=== PATIENT | male | born 1940 | race Caucasian/White ===

== ENCOUNTER 2016-08-16 04:01 | Emergency (ER) | payer MEDICARE ==
--- NOTE | 2016-08-16 04:35 | EDM.PDOC ---
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 As the patient arrived here in the ed, his symptoms subsided. Nio N/V/D no palpitations, no pain. Pt stated he has unequal pupils from a prev eye surgery. Pt stated he feels in is usual state of health. Symptom Onset Date: 08/16/16 Symptom Onset Time: 03:20 Timing/Duration: Reports: Hour(s): Location (Neuro Complaint): Reports: generalized (resolved) Quality (Neuro Complaint): Reports: altered gait (resolved) Severity: moderate (resolved) Improves with: Reports: None Worsens with: Reports: None Associated symptoms: Reports: denies other symptoms - Related Data Allergies/ADRs: Allergies Allergy/AdvReac Type Severity Reaction Status Date / Time No Known Allergies Allergy Verified 09/26/15 18:34 Home Meds: Home Meds Albuterol Sulfate [Proair Hfa] 2 puff IH ASDIRECTED PRN 05/12/13 [History] Lisinopril [Prinivil] 10 mg PO DAILY 05/12/13 [History] Omeprazole [Prilosec] 20 mg PO DAILY 05/12/13 [History] Verapamil HCl [Verapamil ER] 120 mg PO DAILY 05/12/13 [History] Clopidogrel Bisulfate [Clopidogrel] 75 mg PO DAILY 01/14/14 [History] Acetaminophen/HYDROcodone [[place] 162.5-5 MG] 1 tab PO QID PRN 11/01/14 [History] Fluticasone Propionate [Fluticasone Propionate [place]] 1 spray NASBOTH BID PRN [History] Acetaminophen/oxyCODONE [Percocet 325-5 MG] 1 each PO Q4HR #20 tab 09/26/15 [Rx] Past Medical History Cardiovascular History: Reports: Hypertension Other Cardiovascular History: IRREGULAR HEART BEAT Social & Family History - Tobacco Use Smoking Status *Q: Former Smoker Years of Tobacco use: 35 Packs/Tins Daily: 1 Used Tobacco, but Quit: Yes Month Tobacco Last Used: 1984 Second Hand Smoke Exposure: No - Alcohol Use Days Per Week of Alcohol Use: 0 - Recreational Drug Use Recreational Drug Use: No Drug Use in Last 12 Months: No - Living Situation & Occupation Living situation: Reports: Occupation: retired ED ROS GENERAL - Review of Systems Review Of Systems: See Below Constitutional: Reports: no symptoms HEENT: Reports: No symptoms Respiratory: Reports: No Symptoms Cardiovascular: Reports: No symptoms Endocrine: Reports: no symptoms GI/Abdominal: Reports: No symptoms : Reports: no symptoms Musculoskeletal: Reports: no symptoms Skin: Reports: no symptoms Neurological: Reports: No Symptoms Psychiatric: Reports: No symptoms Hematologic/Lymphatic: Reports: no symptoms Immunologic: Reports: no symptoms ED EXAM, NEURO - Physical Exam Exam: See Below Exam Limited By: No limitations General Appearance: alert, WD/WN, no apparent distress, thin Eye Exam: bilateral eye: normal inspection (Left pupil 3 mm r pupil 1 mm. Nl for patient) Ears: normal external exam Nose: normal inspection, normal mucosa, no blood Throat/Mouth: Normal inspection, Other (poor dentition) Head Exam: atraumatic, normocephalic Neck: normal inspection, supple, non-tender, full range of motion Respiratory/Chest: no respiratory distress, lungs clear, normal breath sounds Cardiovascular: normal peripheral pulses, regular rate, rhythm, no edema, no gallop GI/Abdominal: normal bowel sounds, soft, non tender, no organomegaly (Male) Exam: Deferred Rectal (Males) Exam: Deferred Neurological: alert, normal mood/affect, normal dorsiflexion, CN II-XII intact, normal plantar flexion, normal gait, normal reflexes, oriented x 3 Back Exam: normal inspection, full range of motion Extremities: normal inspection, normal range of motion, non-tender, no pedal edema Psychiatric: normal affect, normal mood Skin Exam: Warm, Dry, Intact, Normal color, No rash Course - Vital Signs Text/Narrative:: 76 years old w m with a h/o CVA 3 years ago, HTN 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 As the patient arrived here in the ed, his symptoms subsided. Nio N/V/D no palpitations, no pain. Pt stated he has unequal pupils from a prev eye surgery. Pt stated he feels in is usual state of health. PE: pt is in his usual state of health Labs: Pending imaging: CT head: NAD Impression: TIA Reexam: Pt decided to leave AMA, he "feels fine" and walkd out of the ed after signing the [place] form, pending lab results. Pt refused EKG. - Orders/Labs/Meds Orders: Active Orders 24 hr Category Date Time Status Accu Check [Blood Glucose Check, Bedside] [RC] ONETIME Care 08/16/16 04:15 Active EKG Documentation Completion [RC] ASDIRECTED Care 08/16/16 04:13 Ordered Head wo Cont [CT] Stat Exams 08/16/16 04:18 Ordered BASIC METABOLIC PANEL,BMP [CHEM] Stat Lab 08/16/16 04:12 Ordered CREATINE KINASE,CK [CHEM] Stat Lab 08/16/16 04:20 Ordered INR,PT,PROTHROMBIN TIME [COAG] Stat Lab 08/16/16 04:12 Ordered TROPONIN I [CHEM] Stat Lab 08/16/16 04:20 Ordered UA W/MICROSCOPIC [URIN] Stat Lab 08/16/16 04:12 Uncollected EKG 12 Lead [EK] Routine Ther 08/16/16 04:12 Ordered Labs: Laboratory Tests 08/16/16 08/16/16 Range/Units 04:19 04:25 WBC 7.0 (4.5-12.0) X10-3/uL RBC 4.74 (4.30-5.75) x10(6)uL Hgb 14.5 (11.5-15.5) g/dL Hct 43.3 (30.0-51.3) % MCV 91.5 (80-96) fL MCH 30.5 (27.7-33.6) pg MCHC 33.4 (32.2-35.4) g/dL RDW 13.7 (11.5-15.5) % Plt Count 187 (125-369) X10(3)uL MPV 8.0 (7.4-10.4) fL Neut % (Auto) 65.6 (46-82) % Lymph % (Auto) 22.1 (13-37) % [place] % (Auto) 8.7 (4-12) % Eos % (Auto) 3 (1.0-5.0) % Baso % (Auto) 1 (0-2) % Neut # (Auto) 4.6 (1.6-8.3) # Lymph # (Auto) 1.5 (0.6-5.0) # [place] # (Auto) 0.6 (0.0-1.3) # Eos # (Auto) 0.2 (0.0-0.8) # Baso # (Auto) 0.1 (0.0-0.2) # POC Glucose 100 (80-116) mg/dL Departure - Departure Time of Disposition: 04:42 Disposition: Against Medical Advice 07 Condition: good Clinical Impression: TIA (transient ischemic attack) Qualifiers: Transient cerebral ischemia type: unspecified Qualified Code(s): G45.9 - Transient cerebral ischemic attack, unspecified - My Orders Last 24 Hours: My Active Orders 08/16/16 04:12 BASIC METABOLIC PANEL,BMP [CHEM] Stat INR,PT,PROTHROMBIN TIME [COAG] Stat UA W/MICROSCOPIC [URIN] Stat EKG 12 Lead [EK] Routine 08/16/16 04:13 EKG Documentation Completion [RC] ASDIRECTED 08/16/16 04:15 Accu Check [Blood Glucose Check, Bedside] [RC] ONETIME 08/16/16 04:18 Head wo Cont [CT] Stat 08/16/16 04:20 CREATINE KINASE,CK [CHEM] Stat TROPONIN I [CHEM] Stat - Assessment/Plan Last 24 Hours: My Active Orders 08/16/16 04:12 BASIC METABOLIC PANEL,BMP [CHEM] Stat INR,PT,PROTHROMBIN TIME [COAG] Stat UA W/MICROSCOPIC [URIN] Stat EKG 12 Lead [EK] Routine 08/16/16 04:13 EKG Documentation Completion [RC] ASDIRECTED 08/16/16 04:15 Accu Check [Blood Glucose Check, Bedside] [RC] ONETIME 08/16/16 04:18 Head wo Cont [CT] Stat 08/16/16 04:20 CREATINE KINASE,CK [CHEM] Stat TROPONIN I [CHEM] Stat
== END 2016-08-16 04:35 | disposition left against medical advice (07) ==
LOC: FB.ED 04:01
DX: G45.9 Transient cerebral ischemic attack, unspecified (principal); I10 Essential (primary) hypertension; Z79.899 Other long term (current) drug therapy; Z87.891 Personal history of nicotine dependence
CPT/HCPCS: 36415; 70450; 80048; 81001; 82550; 82962; 84484; 85025; 85610; 99284

== ENCOUNTER 2017-05-09 15:20 | Emergency (ER) | payer MEDICARE ==
[2017-05-09 17:14] VITALS: BP 147/80
--- NOTE | 2017-05-10 10:46 | ER ---
DATE SEEN: 05/09/2017 TIME SEEN: The patient was seen at 1525 hours. CHIEF COMPLAINT: Chest pain, shortness of breath, and dizziness. HISTORY OF PRESENT ILLNESS: This 77-year-old man with chronic obstructive lung disease, who has a who is 400 pounds, who has chronic lung disease, diabetes, atrial fibrillation, and is followed by Home Health Care on a daily basis, comes in because he had the above symptoms. He was sitting and watching a news program, when he had the onset of these symptoms. He has shortness of breath because of his chronic obstructive lung disease/asthma. No previous history of heart attack or stroke. He used Mucinex recently. He has had a previous TIA with left facial droop. He notes the chest pain was 8/10 in intensity, lasting one half hour, felt slightly lightheaded, has gone away with associated mild shortness of breath. No pedal edema. No arrhythmia. No rhythm disturbance. ALLERGIES: None. MEDICATIONS: 1. Omeprazole, gas and GERD. 2. Lisinopril, hypertension, 10 mg daily. 3. Fluticasone nasal spray for allergic rhinitis. 4. Clopidogrel 75 mg daily for his TIA. 5. Albuterol sulfate, asthma. 6. [place] p.r.n. pain, back pain. 7. Verapamil for blood pressure control and heart rate, 120 mg daily. REVIEW OF SYSTEMS: Negative, except for noted above. PHYSICAL EXAMINATION: GENERAL: The patient is slightly somnolent. He has not fallen. Denies headache, neck stiffness, or shortness of breath. There is no change (chronic level of shortness of breath). No productive cough. He has dyspnea on exertion which is baseline for him. No rate irregularity of rhythm. No syncope or presyncope. ABDOMEN: No GI symptoms, constipation, or blood in the stool or black tarry stools. He had previous mid epigastric surgery, incision from the umbilicus to the xiphoid, healed without abnormality. The etiology for this surgery is possibly gallbladder and/or gastric surgery. It is indeterminate. GENITALIA: Not examined. LOWER EXTREMITIES: Without edema. NEUROLOGIC: Deep tendon reflexes, upper and lower extremities symmetrical, 1+, normoactive. Cranial nerves 2 through 12 intact. He has a slight nasolabial fold loss on the left side. Smile is appropriate. He is edentulous. Hearing is decreased. I had to talk loudly to him, uses a hearing aid. LABORATORY FINDINGS: Troponin is negative. D-dimer is negative. Complete metabolic panel is normal, and CBC is normal. See chart. Hemoglobin is 14, white count 6,300, and potassium is normal at 3.6, as well as the other studies in the complete metabolic panel. Urinalysis: Few bacteria, occasional squamous epithelial; normal urinalysis with 1.015 specific gravity. EKG: Sinus rhythm, increased NM interval, first-degree AV block, otherwise normal. ASSESSMENT: 1. No evidence for myocardial infarction, stable angina. 2. Chronic obstructive lung disease. 3. Status post previous transient ischemic attack with clopidogrel use. 4. Hypertension. 5. Gastroesophageal reflux disease. 6. Edentulous. PLAN: Imdur 30 mg given in the emergency room. The patient to take 30 mg daily. Return to the ER if he has persistent recurrent intermittent chest pain. Otherwise, follow up with doctor in a week. /[id number] JODIE/CHANEL
--- NOTE | 2017-05-10 11:32 | CR ---
INDICATION: Chest pain. CHEST: PA and lateral views of the chest 05/09/2017, compared with 09/26/2015 and 10/08/2014, again revealed the heart to be slightly enlarged. The aorta is calcified minimally in the arch area. Overlying EKG leads are noted. Heavy markings are noted in the upper middle through lower lung muller, including the bases, as previously, compatible with pulmonary fibrosis. No definite consolidating pneumonia, or effusion was identified. Slightly flattened diaphragm leaves and hyperaeration with slightly prominent AP diameter suggests COPD - correlate clinically. Flowing hyperostotic changes raise question of mild DISH. Bony structures appear to be somewhat demineralized, raising question of osteomalacia or osteoporosis - correlate clinically. IMPRESSION: Fairly stable appearance of the chest. No definite acute process with multiple findings as noted above. MTDD
== END 2017-05-09 17:10 | disposition home or self-care (01) ==
LOC: FB.ED 15:20
DX: I20.9 Angina pectoris, unspecified (principal); J44.9 Chronic obstructive pulmonary disease, unspecified; I10 Essential (primary) hypertension; K21.9 Gastro-esophageal reflux disease without esophagitis; K06.9 Disorder of gingiva and edentulous alveolar ridge, unspecified; Z79.899 Other long term (current) drug therapy
CPT/HCPCS: 36415; 71046; 80053; 81001; 84484; 85025; 85379; 93005; 99284; 99285

== ENCOUNTER 2017-12-03 13:20 | Emergency (ER) | payer MEDICARE ==
--- NOTE | 2017-12-03 13:43 | EDM.PDOC ---
ED HPI GENERAL MEDICAL PROBLEM - General Stated Complaint: BLOOD IN URINE Time Seen by Provider: 12/03/17 13:20 Source of Information: Reports: Patient History Limitations: Reports: No Limitations - History of Present Illness INITIAL COMMENTS - FREE TEXT/NARRATIVE: 77 y.o.w.m with h/o HTN came to the ed because of blood in his urine this morning one time. Pt was seen in this ed on e week ago for same when he was dx' d with an UTI and was put on Abx and aske to F/U with urology. Pt missed the appointment. Pt stated he has a good urinary stream, no N/V/d. He was c/o roght flank pain as well. Last week, a CT abd with IV and PO contrast were done and found to be neg. Pt took his BP meds [employer]ING [employer]. BP 163/75 pulse 78 RR 17 pulse ox 96% on RA temp 36.9 Onset Date: 12/03/17 Onset Time: 06:00 Duration: Hour(s):, Resolved Prior to Arrival Location: Reports: Pelvis Quality: Reports: Other (bloody urine this am, one occasion) Improves with: Reports: None Worsens with: Reports: None Context: Reports: Other Associated Symptoms: Reports: Other (right flank pain) Rt flank Pain Score (Numeric/FACES): 6 - Related Data Allergies Allergy/AdvReac Type Severity Reaction Status Date / Time No Known Allergies Allergy Verified 12/03/17 13:29 Home Meds: Home Meds Albuterol Sulfate [Proair Hfa] 2 puff IH ASDIRECTED PRN 05/12/13 [History] Omeprazole [Prilosec] 20 mg PO DAILY 05/12/13 [History] Verapamil HCl [Verapamil ER] 120 mg PO DAILY 05/12/13 [History] Clopidogrel Bisulfate [Clopidogrel] 75 mg PO DAILY 01/14/14 [History] Isosorbide Mononitrate [Imdur] 30 mg PO DAILY #30 tab.er 05/09/17 [Rx] Aspirin [Halfprin] 81 mg PO DAILY 11/20/17 [History] Azithromycin [Zithromax] 250 mg PO DAILY #6 tab 11/20/17 [Rx] Lisinopril/Hydrochlorothiazide [Lisinopril-Hctz 20-12.5 mg Tab] 1 tab PO DAILY 11/20/17 [History] Potassium Chloride 20 meq PO BID #10 tablet.er 11/20/17 [Rx] predniSONE 20 mg PO DAILY #8 tab 11/20/17 [Rx] Past Medical History HEENT History: Reports: Impaired Vision, Other (See Below) Other HEENT History: wears glasses Cardiovascular History: Reports: Afib, Hypertension Other Cardiovascular History: IRREGULAR HEART BEAT Musculoskeletal History: Reports: Arthritis Neurological History: Reports: CVA Social & Family History - Family History Family Medical History: Noncontributory - Caffeine Use Caffeine Use: Reports: Coffee - Living Situation & Occupation Living situation: Reports: Occupation: Retired ED ROS GENERAL - Review of Systems Review Of Systems: See Below Constitutional: Reports: No Symptoms HEENT: Reports: No Symptoms Respiratory: Reports: No Symptoms Cardiovascular: Reports: No Symptoms Endocrine: Reports: No Symptoms GI/Abdominal: Reports: No Symptoms : Reports: Flank Pain, Hematuria (one time this am) Musculoskeletal: Reports: No Symptoms Skin: Reports: No Symptoms Neurological: Reports: No Symptoms Psychiatric: Reports: No Symptoms Hematologic/Lymphatic: Reports: No Symptoms Immunologic: Reports: No Symptoms ED EXAM, RENAL/ - Physical Exam Exam: See Below Exam Limited By: Physical Impairment General Appearance: Alert, WD/WN, No Apparent Distress, Thin Eye Exam: Bilateral Eye: Normal Inspection Ears: Normal External Exam Nose: Normal Inspection Throat/Mouth: Normal Lips, Normal Oropharynx, Normal Voice, No Airway Compromise Head: Atraumatic, Normocephalic Neck: Normal Inspection, Supple, Non-Tender, Full Range of Motion Respiratory/Chest: No Respiratory Distress, Lungs Clear, Normal Breath Sounds, No Accessory Muscle Use, Chest Non-Tender Cardiovascular: Normal Peripheral Pulses, Regular Rate, Rhythm, No Edema, No Gallop, No JVD, No Murmur, No Rub GI/Abdominal: Normal Bowel Sounds, Soft, Non-Tender (Male) Exam: No Hernia (left inguinal hernia), Normal Inspection Rectal (Males) Exam: Deferred Back Exam: Normal Inspection, Full Range of Motion Extremities: Normal Inspection, Normal Range of Motion, Non-Tender, No Pedal Edema, Normal Capillary Refill Neurological: Alert, Oriented, CN II-XII Intact, Normal Cognition, Normal Gait Psychiatric: Normal Affect, Normal Mood Skin Exam: Warm, Dry, Intact, Normal Color, No Rash Lymphatic: No Adenopathy Course - Vital Signs Text/Narrative:: 77 y.o.w.m with h/o HTN came to the ed because of blood in his urine this morning one time. Pt was seen in this ed on e week ago for same when he was dx' d with an UTI and was put on Abx and aske to F/U with urology. Pt missed the appointment. Pt stated he has a good urinary stream, no N/V/d. He was c/o roght flank pain as well. Last week, a CT abd with IV and PO contrast were done and found to be neg. Pt took his BP meds [employer]ING [employer]ERK. BP 163/75 pulse 78 RR 17 pulse ox 96% on RA temp 36.9 PE: This 77 y.o.w.m c/o of blood in urine and right flank pain Imaging: CT abd/pelvis: wall o bladder thickened. labs: UAneg foir blood/infection Impression: Hematuria by H/O, HTN Tx: Pt refused BP meds and HTN W/U Plan: D/C with instructions Last Recorded V/S: Last Vital Signs Temp 36.8 C 12/03/17 15:55 Pulse 78 12/03/17 15:55 Resp 18 12/03/17 15:55 BP 173/81 H 12/03/17 15:55 Pulse Ox 96 12/03/17 15:55 - Orders/Labs/Meds Orders: Active Orders 24 hr Category Date Time Status UA W/MICROSCOPIC [URIN] Stat Lab 12/03/17 14:15 Ordered Labs: Laboratory Tests 12/03/17 12/03/17 12/03/17 Range/Units 13:54 13:54 14:00 WBC 7.5 (4.5-12.0) X10-3/uL RBC 4.06 L (4.30-5.75) x10(6)uL Hgb 13.1 (11.5-15.5) g/dL Hct 38.1 (30.0-51.3) % MCV 93.7 (80-96) fL MCH 32.3 (27.7-33.6) pg MCHC 34.5 (32.2-35.4) g/dL RDW 14.0 (11.5-15.5) % Plt Count 231 (125-369) X10(3)uL MPV 7.4 (7.4-10.4) fL Neut % (Auto) 71.4 (46-82) % Lymph % (Auto) 19.2 (13-37) % [place] % (Auto) 7.3 (4-12) % Eos % (Auto) 2 (1.0-5.0) % Baso % (Auto) 1 (0-2) % Neut # (Auto) 5.5 (1.6-8.3) # Lymph # (Auto) 1.4 (0.6-5.0) # [place] # (Auto) 0.5 (0.0-1.3) # Eos # (Auto) 0.1 (0.0-0.8) # Baso # (Auto) 0.0 (0.0-0.2) # Sodium 137 (135-145) mmol/L Potassium 3.6 (3.5-5.3) mmol/L Chloride 103 (100-110) mmol/L Carbon Dioxide 31 (21-32) mmol/L BUN 13 (7-18) mg/dL Creatinine 1.1 (0.70-1.30) mg/dL Est Cr Clr Drug Dosing 52.68 mL/min Estimated GFR (MDRD) > 60 (>60) BUN/Creatinine Ratio 11.8 (9-20) Glucose 139 H (80-116) mg/dL Calcium 8.8 (8.6-10.2) mg/dL Total Bilirubin 0.6 (0.1-1.3) mg/dL Direct Bilirubin 0.16 (0.10-0.20) mg/dL AST 12 D (5-25) IU/L ALT 18 (12-36) U/L Alkaline Phosphatase 95 (56-112) IU/L Total Protein 7.0 (6.0-8.0) g/dL Albumin 2.9 L (3.2-4.6) g/dL Urine Color (YELLOW) Urine Appearance (CLEAR) Urine pH (5.0-6.5) Ur Specific [place] (1.010-1.025) Urine Protein (NEGATIVE) mg/dL Urine Glucose (UA) (NEGATIVE) mg/dL Urine Ketones (NEGATIVE) mg/dL Urine Occult Blood (NEGATIVE) Urine Nitrite (NEGATIVE) Urine Bilirubin (NEGATIVE) Urine Urobilinogen (NEGATIVE) mg/dL Ur Leukocyte Esterase (NEGATIVE) Urine RBC (0) Urine WBC (0) Ur Squamous Epith Cells (NS,R,O) Urine Bacteria (NS) Urine Mucus (NS) 12/03/17 Range/Units 14:15 WBC (4.5-12.0) X10-3/uL RBC (4.30-5.75) x10(6)uL Hgb (11.5-15.5) g/dL Hct (30.0-51.3) % MCV (80-96) fL MCH (27.7-33.6) pg MCHC (32.2-35.4) g/dL RDW (11.5-15.5) % Plt Count (125-369) X10(3)uL MPV (7.4-10.4) fL Neut % (Auto) (46-82) % Lymph % (Auto) (13-37) % [place] % (Auto) (4-12) % Eos % (Auto) (1.0-5.0) % Baso % (Auto) (0-2) % Neut # (Auto) (1.6-8.3) # Lymph # (Auto) (0.6-5.0) # [place] # (Auto) (0.0-1.3) # Eos # (Auto) (0.0-0.8) # Baso # (Auto) (0.0-0.2) # Sodium (135-145) mmol/L Potassium (3.5-5.3) mmol/L Chloride (100-110) mmol/L Carbon Dioxide (21-32) mmol/L BUN (7-18) mg/dL Creatinine (0.70-1.30) mg/dL Est Cr Clr Drug Dosing mL/min Estimated GFR (MDRD) (>60) BUN/Creatinine Ratio (9-20) Glucose (80-116) mg/dL Calcium (8.6-10.2) mg/dL Total Bilirubin (0.1-1.3) mg/dL Direct Bilirubin (0.10-0.20) mg/dL AST (5-25) IU/L ALT (12-36) U/L Alkaline Phosphatase (56-112) IU/L Total Protein (6.0-8.0) g/dL Albumin (3.2-4.6) g/dL Urine Color Yellow (YELLOW) Urine Appearance Slightly cloudy (CLEAR) Urine pH 6.5 (5.0-6.5) Ur Specific [place] 1.020 (1.010-1.025) Urine Protein Negative (NEGATIVE) mg/dL Urine Glucose (UA) Normal (NEGATIVE) mg/dL Urine Ketones Negative (NEGATIVE) mg/dL Urine Occult Blood Negative (NEGATIVE) Urine Nitrite Negative (NEGATIVE) Urine Bilirubin Small H (NEGATIVE) Urine Urobilinogen 4 H (NEGATIVE) mg/dL Ur Leukocyte Esterase Negative (NEGATIVE) Urine RBC 0-5 (0) Urine WBC 0-5 (0) Ur Squamous Epith Cells Moderate H (NS,R,O) Urine Bacteria Moderate H (NS) Urine Mucus Few H (NS) Departure - Departure Time of Disposition: 15:47 Disposition: Home, Self-Care 01 Condition: Good Clinical Impression: Cystitis Hypertension Qualifiers: Hypertension type: essential hypertension Qualified Code(s): I10 - Essential ( primary) hypertension - Discharge Information Instructions: Interstitial Cystitis Referrals: Jg Nash MD [Primary Care Provider] - Forms: ED Department Discharge Additional Instructions: Please f/u with your PMD/Urologist a.aramp, please come back to the ed if your symptoms get worse acutely. Please take your BP meds. - My Orders Last 24 Hours: My Active Orders 12/03/17 14:15 UA W/MICROSCOPIC [URIN] Stat - Assessment/Plan Last 24 Hours: My Active Orders 12/03/17 14:15 UA W/MICROSCOPIC [URIN] Stat
--- NOTE | 2017-12-03 15:03 | CT ---
INDICATION: Right flank pain with blood in urine. CT ABDOMEN AND PELVIS WITHOUT CONTRAST: Spiral 1.25 mm axial sections were obtained through the abdomen and pelvis without contrast, utilizing renal calculus protocol, with sagittal and coronal reconstructions, 12/03/2017, and compared with 11/20/2017. Total exam DLP = 767.30 mGy-cm. There are again noted fairly severe fibrotic changes in the lungs and evidence of emphysematous changes in the lungs. A definite consolidating pneumonia was not seen. The liver was unremarkable. No gallstones were visualized. The common bile duct did not appear to be significantly enlarged. The adrenal glands appeared normal. The spleen appeared normal, except for a few calcifications compatible with minimal previous histoplasmosis with a splenule noted along the anterior inferior aspect. The pancreas appeared normal. The appendix did not show evidence of appendicitis. No evidence of bowel obstruction or free air was seen. A tiny umbilical hernia including only fat is noted. A fairly large left inguinal hernia is noted, including only fat. Arterial calcifications are again noted. No definite mass lesion is seen in the kidneys. No calculi are seen in the kidneys. No evidence of obstructive uropathy was identified - no hydronephrosis or hydroureter was present. Course and caliber of the ureters, as visualized, appeared normal. The urinary bladder wall was thickened, suggesting the possibility of infection. No definite calculi are seen in the urinary bladder. There are a few calcifications in the prostate. A fairly large bolus of stool is noted at the rectum - no gross distention of the colon was seen, however. There is some dilatation of the distal abdominal aorta to approximately 27 mm, similar to the previous examination. No retroperitoneal masses were identified. IMPRESSION: 1. No evidence of obstructive uropathy or renal calcinosis or calculi in the urinary bladder. There is, however, noted thickening of the urinary bladder wall, which should be correlated clinically. It may represent an active infection. 2. ASD. 3. Emphysematous changes and fibrosis in the lower lung muller visualized. 4. Large fat-containing left inguinal hernia. 5. Tiny umbilical hernia, including only fat. 6. Degenerative changes and disk disease L5-S1 - degenerative changes thoracolumbar spine in general with hypertrophic lipping. 7. Atherosclerotic changes in the aorta and adjacent vessels with dilatation to 27 mm at the mid to distal aorta. Report was called to Dr. Leidig at 1434 hours on 12/03/2017. MTDD
[2017-12-03 17:49] VITALS: BP 173/81
== END 2017-12-03 15:55 | disposition home or self-care (01) ==
LOC: FB.ED 13:20
DX: N30.91 Cystitis, unspecified with hematuria (principal); I10 Essential (primary) hypertension; I48.91 Unspecified atrial fibrillation; Z79.899 Other long term (current) drug therapy; Z79.82 Long term (current) use of aspirin
CPT/HCPCS: 36415; 74176; 80048; 80076; 81001; 85025; 99284

== ENCOUNTER 2018-05-26 06:02 | Emergency (ER) | payer MEDICAID, MEDICARE ==
[2018-05-26] MEDS ORDERED: Albuterol/Ipratropium 3.0-0.5 MG/3 ML Neb Soln NEB ONE (06:36)
[2018-05-26] MEDS ORDERED: Famotidine 20 MG Tab PO ONE (07:01)
[2018-05-26] MEDS ORDERED: Aspirin 325 MG Tab.EC PO ONE (07:03)
[2018-05-26] MEDS ORDERED: Levofloxacin 750 MG Tab PO SCH (07:15)
--- NOTE | 2018-05-26 07:29 | EDM.PDOC ---
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 He has not had his medicines for 2 months because when he moved 2 months ago, he left them in the department and they threw them out. He has not called his pharmacy, [facility] in [place] to get his medicines refilled. He's been on clopidogrel 75 mg per day omeprazole 20 mg daily verapamil 120 ER daily lisinopril / hydrochlorothiazide 20/12.5 Imdur 30 mg daily aspirin 81 mg daily albuterol inhaler. For the past week he's had increasing cough and low-grade fever mild shortness of breath. Other diagnoses COPD with [id number] smoking, smoked from age 18 to age 58; GERD, TIAs, hypertension, coronary artery disease, pulmonary fibrosis, COPD, social isolation , - Related Data Allergies Allergy/AdvReac Type Severity Reaction Status Date / Time No Known Allergies Allergy Verified 05/26/18 06:17 Home Meds: Home Meds Albuterol Sulfate [Proair Hfa] 2 puff IH ASDIRECTED PRN 05/12/13 [History] Omeprazole [Prilosec] 20 mg PO DAILY 05/12/13 [History] Verapamil HCl [Verapamil ER] 120 mg PO DAILY 05/12/13 [History] Clopidogrel Bisulfate [Clopidogrel] 75 mg PO DAILY 01/14/14 [History] Isosorbide Mononitrate [Imdur] 30 mg PO DAILY #30 tab.er 05/09/17 [Rx] Aspirin [Halfprin] 81 mg PO DAILY 11/20/17 [History] Lisinopril/Hydrochlorothiazide [Lisinopril-Hctz 20-12.5 mg Tab] 1 tab PO DAILY 11/20/17 [History] Past Medical History HEENT History: Reports: Impaired Vision, Other (See Below) Other HEENT History: wears glasses Cardiovascular History: Reports: Afib, Hypertension Other Cardiovascular History: IRREGULAR HEART BEAT Respiratory History: Reports: Asthma, Bronchitis, Recurrent, COPD Gastrointestinal History: Reports: Hiatal Hernia Genitourinary History: Reports: Renal Calculus, Other (See Below) Other Genitourinary History: bloody urine, enlarged left testicle Musculoskeletal History: Reports: Arthritis Other Musculoskeletal History: patellar fracture Neurological History: Reports: CVA Other Neuro History: periods of dizziness with giddiness- according to [facility] Oncologic (Cancer) History: Reports: Colon, Prostate - Infectious Disease History Infectious Disease History: Reports: Hepatitis C - Past Surgical History Cardiovascular Surgical History: Reports: Carotid Endarterectomy GI Surgical History: Reports: Hernia, Abdominal Musculoskeletal Surgical History: Reports: Arthroscopic Knee, Shoulder Surgery Social & Family History - Family History Family Medical History: Noncontributory - Tobacco Use Smoking Status *Q: Former Smoker Used Tobacco, but Quit: Yes Month/Year Tobacco Last Used: 30 YEARS AGO - Caffeine Use Caffeine Use: Reports: Coffee - Recreational Drug Use Recreational Drug Use: No - Living Situation & Occupation Living situation: Reports: Occupation: Retired ED ROS GENERAL - Review of Systems Review Of Systems: See Below Constitutional: Reports: Fatigue HEENT: Reports: No Symptoms Respiratory: Reports: Shortness of Breath, Cough Cardiovascular: Reports: No Symptoms Endocrine: Reports: No Symptoms GI/Abdominal: Reports: No Symptoms : Reports: No Symptoms Musculoskeletal: Reports: Other (Mild arthritis) Skin: Reports: No Symptoms Neurological: Reports: Other (History of TIAs) Psychiatric: Reports: No Symptoms Hematologic/Lymphatic: Reports: No Symptoms Immunologic: Reports: No Symptoms ED EXAM, GENERAL - Physical Exam Exam: See Below Free Text/Narrative:: This 78-year-old man is coughing frequently. Has a dry nonproductive cough. Initially his oxygen saturation were 88%. He sits up and is guarding and takes deep breath it goes up to 93-94%. He has moderate accessory muscle use. No tracheal tug or deviation. Exam Limited By: No Limitations General Appearance: Alert, WD/WN, Mild Distress Eye Exam: Bilateral Eye: Normal Inspection Ears: Normal External Exam, Normal Canal, Other (Decreased hearing) Ear Exam: Bilateral Ear: Auricle Normal, Canal Normal, TM normal Nose: Normal Inspection Throat/Mouth: Normal Inspection, Other (Edentulous) Head: Atraumatic, Normocephalic Neck: Normal Inspection Respiratory/Chest: No Respiratory Distress, Chest Non-Tender, Rales, Accessory Muscle Use, Prolonged Expiration Cardiovascular: Normal Peripheral Pulses, Regular Rate, Rhythm, No Edema, No Gallop, No JVD, No Murmur, No Rub Peripheral Pulses: 1+: Radial (R), Femoral (L) GI/Abdominal: Normal Bowel Sounds, Soft, Non-Tender, No Organomegaly, No Distention, No Abnormal Bruit (Male) Exam: No Hernia Rectal (Males) Exam: Deferred Back Exam: Normal Inspection Extremities: Normal Inspection, Normal Range of Motion, Non-Tender, No Pedal Edema, Normal Capillary Refill Neurological: Alert, Oriented, CN II-XII Intact, Normal Cognition, Normal Gait, Normal Reflexes Psychiatric: Normal Affect, Normal Mood Skin Exam: Warm, Dry, Intact, Normal Color EKG INTERPRETATION EKG Date: 05/26/18 ( [facility] EKG) Time: 05:55 Rhythm: NSR Rate (Beats/Min): 93 [place]: Normal P-Wave: Present QRS: Normal ST-T: Normal EKG Interpretation Comments: Normal sinus rhythm with multifocal PVCs and occasional quadrigeminy Course - Vital Signs Last Recorded V/S: Last Vital Signs Temp 36.8 C 05/26/18 06:02 Pulse 98 05/26/18 06:56 Resp 18 05/26/18 06:02 BP 141/75 H 05/26/18 06:02 Pulse Ox 93 L 05/26/18 06:02 - Orders/Labs/Meds Orders: Active Orders 24 hr Category Date Time Status RT Aerosol Therapy [RC] ASDIRECTED Care 05/26/18 06:37 Ordered Chest 2V [CR] Stat Exams 05/26/18 06:18 Ordered levoFLOXacin [Levaquin] Med 05/26/18 07:15 Ordered 750 mg PO Q24H predniSONE Med 05/26/18 08:00 Ordered 40 mg PO WITHBREAKFAST Medication Orders Levofloxacin (Levaquin) 750 mg PO Q24H KAYLA Last Admin: 05/26/18 07:15 Dose: 750 mg Prednisone (Prednisone) 40 mg PO WITHBREAKFAST KAYLA Last Admin: 05/26/18 07:15 Dose: 40 mg Labs: Laboratory Tests 05/26/18 05/26/18 05/26/18 Range/Units 06:30 06:30 06:30 WBC 6.0 (4.5-12.0) X10-3/uL RBC 4.81 (4.30-5.75) x10(6)uL Hgb 15.1 (11.5-15.5) g/dL Hct 44.7 (30.0-51.3) % MCV 92.9 (80-96) fL MCH 31.3 (27.7-33.6) pg MCHC 33.7 (32.2-35.4) g/dL RDW 14.1 (11.5-15.5) % Plt Count 173 (125-369) X10(3)uL MPV 8.3 (7.4-10.4) fL Neut % (Auto) 60.1 (46-82) % Lymph % (Auto) 25.5 (13-37) % [place] % (Auto) 13.2 H (4-12) % Eos % (Auto) 1 (1.0-5.0) % Baso % (Auto) 1 (0-2) % Neut # (Auto) 3.7 (1.6-8.3) # Lymph # (Auto) 1.5 (0.6-5.0) # [place] # (Auto) 0.8 (0.0-1.3) # Eos # (Auto) 0.0 (0.0-0.8) # Baso # (Auto) 0.0 (0.0-0.2) # D-Dimer, Quantitative 0.54 (0.0-0.59) mg/LFEU Troponin I 0.032 (<0.017-0.056) ng/mL Meds: Medications Generic Name Dose Route Start Last Admin Trade Name Freq PRN Reason Stop Dose Admin Levofloxacin 750 mg 05/26/18 07:15 05/26/18 07:15 Levaquin PO 750 mg Q24H KAYLA Administration Prednisone 40 mg 05/26/18 08:00 05/26/18 07:15 Prednisone PO 40 mg WITHBREAKFAST KAYLA Administration Discontinued Medications Generic Name Dose Route Start Last Admin Trade Name Freq PRN Reason Stop Dose Admin Albuterol/Ipratropium 3 ml 05/26/18 06:36 05/26/18 06:55 Duoneb 3.0-0.5 Mg/3 Ml NEB 05/26/18 06:37 3 ml ONETIME ONE Administration Aspirin 325 mg 05/26/18 07:03 05/26/18 07:15 Ecotrin PO 05/26/18 07:04 325 mg ONETIME ONE Administration Famotidine 20 mg 05/26/18 07:01 05/26/18 07:15 Pepcid PO 05/26/18 07:02 20 mg ONETIME ONE Administration Departure - Departure Time of Disposition: 07:30 (COPD with exacerbation no pneumonia on chest x-ray moderate fibrosis and old scarring with left lower lobe atelectasis chronic. Diagnosis COPD with exacerbation plan start disown 40 mg daily and Levaquin 750 mg daily for 5 days and restart all his medicines which she has not taken for 2 months cooperative to 75 mg daily albuterol when necessary verapamil AR 120 mg daily omeprazole 20 mg daily lisinopril hydrochlorothiazide 20/12.5, Imdur 20 mg daily aspirin 81 mg daily albuterol when necessary and Ellipta 1 inhalation daily. A request to [facility] in [facility] has been faxed for refilling his medicines and delivery of his medicines to his apartment [address] [place] [address] 3, [place], [place] ) Disposition: Home, Self-Care 01 Condition: Good Clinical Impression: COPD with exacerbation, Bronchitis, Social isolation, History of TIAs, Pulmonary fibrosis GERD (gastroesophageal reflux disease) Qualifiers: Esophagitis presence: without esophagitis Qualified Code(s): K21.9 - Gastro- esophageal reflux disease without esophagitis Coronary artery disease Qualifiers: Coronary Disease-Associated Artery/Lesion type: [place] artery [place] vs. transplanted heart: [place] heart Associated angina: without angina Qualified Code(s): I25.10 - Atherosclerotic heart disease of [place] coronary artery without angina pectoris Hypertension Qualifiers: Hypertension type: essential hypertension Qualified Code(s): I10 - Essential ( primary) hypertension - Discharge Information *PRESCRIPTION DRUG MONITORING PROGRAM REVIEWED*: Not Applicable *COPY OF PRESCRIPTION DRUG MONITORING REPORT IN PATIENT ELLA: Not Applicable Referrals: Jg Nsah MD [Primary Care Provider] - - My Orders Last 24 Hours: My Active Orders 05/26/18 06:18 Chest 2V [CR] Stat 05/26/18 06:37 RT Aerosol Therapy [RC] ASDIRECTED 05/26/18 07:15 levoFLOXacin [Levaquin] 750 mg PO Q24H 05/26/18 08:00 predniSONE 40 mg PO WITHBREAKFAST - Assessment/Plan Last 24 Hours: My Active Orders 05/26/18 06:18 Chest 2V [CR] Stat 05/26/18 06:37 RT Aerosol Therapy [RC] ASDIRECTED 05/26/18 07:15 levoFLOXacin [Levaquin] 750 mg PO Q24H 05/26/18 08:00 predniSONE 40 mg PO WITHBREAKFAST
[2018-05-26] MEDS ORDERED: predniSONE 20 MG Tab PO SCH (08:00)
--- NOTE | 2018-05-26 10:39 | CR ---
INDICATION: Cough, shortness of breath. CHEST: PA and lateral views of the chest, 05/26/18, were compared with and 05/09/17, revealing the heart to appear normal in size and shape. Heavy markings are again noted bilaterally, somewhat irregularly, compatible with pulmonary fibrosis and making it difficult to exclude areas of patchy bronchopneumonia superimposed. However, no consolidating pneumonia or effusion was seen. Overlying EKG leads are noted. Calcifications are noted in the arch of the aorta. Overlying snaps are noted. Diminished bone density is suggested, which may be on the basis of osteomalacia or osteoporosis and should be correlated clinically. Minimal flowing anterior hyperostotic changes are noted, as previously. IMPRESSION: No definite acute process but difficult to exclude areas of patchy bronchopneumonia. MTDD
[2018-05-28 16:24] VITALS: BP 151/75
== END 2018-05-26 07:40 | disposition home or self-care (01) ==
LOC: FB.ED 06:02
DX: J44.1 Chronic obstructive pulmonary disease with (acute) exacerbation (principal); J40 Bronchitis, not specified as acute or chronic; J84.10 Pulmonary fibrosis, unspecified; I10 Essential (primary) hypertension; I25.10 Atherosclerotic heart disease of native coronary artery without angina pectoris; I48.91 Unspecified atrial fibrillation; K21.9 Gastro-esophageal reflux disease without esophagitis; Z86.73 Personal history of transient ischemic attack (TIA), and cerebral infarction without residual deficits; Z79.82 Long term (current) use of aspirin; Z79.899 Other long term (current) drug therapy; Z87.891 Personal history of nicotine dependence
CPT/HCPCS: 36415; 71046; 84484; 85025; 85379; 94640; 99285; A9270-GY; J7620-GY

== ENCOUNTER 2018-05-27 09:04 | Inpatient (IN) | payer MEDICARE, MEDICAID ==
[2018-05-27] MEDS ORDERED: Polyethylene Glycol 3350 Powder 17 GM Packet PO PRN (10:53)
--- NOTE | 2018-05-27 10:58 | PCM.HP ---
<Leah Whitten - Last Filed: 05/27/18 11:07> H&P History of Present Illness - General Date of Service: 05/27/18 Source of Information: Patient History Limitations: Reports: No Limitations - History of Present Illness Initial Comments - Free Text/Narative: Mr. Renee is an 78 year old male with PMH significant for right carotid artery stenosis, asthma, atrial fibrillation (not on anti-coagulation), hypertension who presents as a direct admit from [facility]. The patient was noted to have atrial fibrillation with RVR at the clinic yesterday. He reports that he is feeling well at this time but has been sustaining falls multiple times over the last month. He does not lose conciousness and recalls all preceding events. No history of seizures. - Related Data Allergies/Adverse Reactions: Allergies Allergy/AdvReac Type Severity Reaction Status Date / Time No Known Allergies Allergy Verified 05/26/18 06:17 Home Medications: Home Meds Albuterol Sulfate [Proair Hfa] 2 puff IH Q4H PRN 05/12/13 [History] Omeprazole [Prilosec] 20 mg PO DAILY 05/12/13 [History] Verapamil HCl [Verapamil ER] 120 mg PO DAILY 05/12/13 [History] Clopidogrel Bisulfate [Clopidogrel] 75 mg PO DAILY 01/14/14 [History] Isosorbide Mononitrate [Imdur] 30 mg PO DAILY #30 tab.er 05/09/17 [Rx] Aspirin [Halfprin] 81 mg PO DAILY 11/20/17 [History] Lisinopril/Hydrochlorothiazide [Lisinopril-Hctz 20-12.5 mg Tab] 1 tab PO DAILY 11/20/17 [History] Past Medical History HEENT History: Reports: Impaired Vision, Other (See Below) Other HEENT History: wears glasses Cardiovascular History: Reports: Afib, Hypertension Other Cardiovascular History: IRREGULAR HEART BEAT Respiratory History: Reports: Asthma, Bronchitis, Recurrent, COPD Gastrointestinal History: Reports: Hiatal Hernia Genitourinary History: Reports: Renal Calculus, Other (See Below) Other Genitourinary History: bloody urine, enlarged left testicle Musculoskeletal History: Reports: Arthritis Other Musculoskeletal History: patellar fracture Neurological History: Reports: CVA Other Neuro History: periods of dizziness with giddiness- according to [facility] &[facility] Oncologic (Cancer) History: Reports: Colon, Prostate - Infectious Disease History Infectious Disease History: Reports: Hepatitis C - Past Surgical History Cardiovascular Surgical History: Reports: Carotid Endarterectomy GI Surgical History: Reports: Hernia, Abdominal Musculoskeletal Surgical History: Reports: Arthroscopic Knee, Shoulder Surgery Social & Family History - Family History Family Medical History: Noncontributory - Caffeine Use Caffeine Use: Reports: Coffee - Living Situation & Occupation Living situation: Reports: Occupation: Retired H&P Review of Systems - Review of Systems: General: Reports: No Symptoms HEENT: Reports: No Symptoms Pulmonary: Reports: No Symptoms Cardiovascular: Reports: No Symptoms Gastrointestinal: Reports: No Symptoms Genitourinary: Reports: No Symptoms Musculoskeletal: Reports: No Symptoms Skin: Reports: No Symptoms Psychiatric: Reports: No Symptoms Neurological: Reports: No Symptoms Hematologic/Lymphatic: Reports: No Symptoms Immunologic: Reports: No Symptoms Exam - Exam Exam: See Below - Exam General: Alert, Oriented HEENT: PERRLA, Conjunctiva Clear Neck: Supple, Trachea Midline Lungs: Clear to Auscultation, Normal Respiratory Effort Cardiovascular: Regular Rate, Irregular Rhythm GI/Abdominal Exam: Normal Bowel Sounds, Soft Back Exam: Normal Inspection, Full Range of Motion Extremities: Normal Inspection, Normal Range of Motion, No Pedal Edema Skin: Warm - Problem List (1) COPD (chronic obstructive pulmonary disease) SNOMED Code(s): 67770224 ICD Code: J44.9 - CHRONIC OBSTRUCTIVE PULMONARY DISEASE, UNSPECIFIED Status : Acute Current Visit: Yes (2) Falls frequently SNOMED Code(s): 997826064 ICD Code: R29.6 - REPEATED FALLS Status: Acute Current Visit: Yes (3) Hypertension SNOMED Code(s): 55154975 ICD Code: I10 - ESSENTIAL (PRIMARY) HYPERTENSION Status: Acute Current Visit: No Qualifiers: Hypertension type: essential hypertension Qualified Code(s): I10 - Essential (primary) hypertension (4) Atrial fibrillation SNOMED Code(s): 13652804 ICD Code: I48.91 - UNSPECIFIED ATRIAL FIBRILLATION Status: Acute Current Visit: Yes Problem List Initiated/Reviewed/Updated: Yes Assessment/Plan Comment:: His rate is normal at this time but still seems to be having irregular rhythm. We will order some basic labs today and an EKG to assess for any cardiac origin of his falls. He will be placed on telemetry as well. The patient did have carotid ultrasound in 2014 which showed interval right carotid endarterectomy with no singnificant stenosis but did also show progression of left stenosis in 50-69% range. We will consider repeating this. <BrantleyDonavan - Last Filed: 05/28/18 17:51> H&P History of Present Illness - General Admit Problem/Dx: Admission Diagnosis/Problem Admission Diagnosis/Problem Falls B LE Pain Score (Numeric/FACES): 4 H&P Review of Systems - Review of Systems: Review Of Systems: See Below Exam - Exam Exam: See Below - Vital Signs Vital Signs: Last Vital Signs Temp 97.6 F 05/28/18 15:37 Pulse 84 05/28/18 15:37 Resp 20 05/28/18 15:37 BP 140/62 05/28/18 15:37 Pulse Ox 95 05/28/18 15:37 - Patient Data Lab Results Last 24 hrs: Laboratory Results - last 24 hr 05/27/18 Range/Units 11:12 D-Dimer, Quantitative 0.43 (0.0-0.59) mg/LFEU Result Diagrams: 05/27/18 11:12 05/27/18 11:12 - Problem List (1) Palliative care status SNOMED Code(s): 787576171 ICD Code: Z51.5 - ENCOUNTER FOR PALLIATIVE CARE Status: Acute Current Visit: Yes (2) COPD (chronic obstructive pulmonary disease) SNOMED Code(s): 33131435 ICD Code: J44.9 - CHRONIC OBSTRUCTIVE PULMONARY DISEASE, UNSPECIFIED Status : Acute Current Visit: Yes (3) Falls frequently SNOMED Code(s): 543969282 ICD Code: R29.6 - REPEATED FALLS Status: Acute Current Visit: Yes (4) GERD (gastroesophageal reflux disease) SNOMED Code(s): 637275450 ICD Code: K21.9 - GASTRO-ESOPHAGEAL REFLUX DISEASE WITHOUT ESOPHAGITIS Status: Acute Current Visit: No Qualifiers: Esophagitis presence: without esophagitis Qualified Code(s): K21.9 - Gastro -esophageal reflux disease without esophagitis Problem List Initiated/Reviewed/Updated: Yes Orders Last 24hrs: Active Orders 24 hr Category Date Time Status Albuterol [Ventolin HFA] Med 05/28/18 09:20 Active 0 gm INH Q4H PRN Azithromycin [Zithromax] 500 mg Med 05/28/18 10:30 Active Sodium Chloride 0.9% [Normal Saline] 250 ml IV Q24H Hydrochlorothiazide/Lisinopril [Lisinopril/HCTZ 20-12.5 Med 05/28/18 09:30 Active MG] 1 tab PO DAILY Pantoprazole [ProTONIX] Med 05/29/18 06:00 Active 40 mg PO DAILY@0600 Sodium Chloride 0.9% [Saline Flush] Med 05/28/18 10:10 Active 10 ml FLUSH ASDIRECTED PRN cefTRIAXone [Rocephin] Med 05/28/18 10:00 Active 1 gm IVPUSH Q24H Saline Lock Insert [OM.PC] Routine Oth 05/28/18 10:10 Ordered Medication Orders Albuterol (Ventolin Hfa) 0 gm INH Q4H PRN PRN Reason: Shortness of Breath Ceftriaxone Sodium (Rocephin) 1 gm IVPUSH Q24H [facility] Last Admin: 05/28/18 10:24 Dose: 1 gm Lisinopril/HCTZ (Lisinopril/Hctz 20-12.5 Mg) 1 tab PO DAILY [facility] Last Admin: 05/28/18 10:12 Dose: 1 tab Heparin Sodium (Porcine) (Heparin Sodium) 5,000 units SUBCUT Q8H [facility] Last Admin: 05/28/18 14:36 Dose: 5,000 units Admin: 05/28/18 05:59 Dose: 5,000 units Admin: 05/27/18 21:11 Dose: 5,000 units Admin: 05/27/18 14:39 Dose: 5,000 units Azithromycin 500 mg/ Sodium (Chloride) 250 mls @ 250 mls/hr IV Q24H [facility] Last Admin: 05/28/18 10:31 Dose: 250 mls/hr Pantoprazole Sodium (Protonix) 40 mg PO DAILY@0600 [facility] Polyethylene Glycol (Miralax) 17 gm PO DAILY PRN PRN Reason: Constipation Sodium Chloride (Saline Flush) 10 ml FLUSH ASDIRECTED PRN PRN Reason: Keep Vein Open Last Admin: 05/28/18 11:51 Dose: 10 ml Assessment/Plan Comment:: I have seen this patient with the resident and agree.
[2018-05-27] MEDS: Heparin Sodium 5,000 Units/ML Vial SUBCUT SCH ×2 (14:39→21:11)
[2018-05-28] MEDS: Heparin Sodium 5,000 Units/ML Vial SUBCUT SCH ×3 (05:59→21:41)
--- NOTE | 2018-05-28 09:19 | PCM.PN ---
- General Info Date of Service: 05/28/18 Admission Dx/Problem (Free Text): Patient says is a little short of breath but is better than yesterday. He has no fevers, chills, cough no leg swelling no PND or orthopnea. His history of CHF and COPD. - Patient Data Vitals - Most Recent: Last Vital Signs Temp 97.5 F 05/28/18 04:00 Pulse 65 05/28/18 04:00 Resp 18 05/28/18 04:00 BP 145/80 H 05/28/18 04:00 Pulse Ox 96 05/28/18 04:00 Weight - Most Recent: 179 lb Lab Results Last 24 Hours: Laboratory Results - last 24 hr 05/27/18 05/27/18 05/27/18 Range/Units 11:12 11:12 11:12 WBC 6.8 (4.5-12.0) X10-3/uL RBC 4.78 (4.30-5.75) x10(6)uL Hgb 14.9 (11.5-15.5) g/dL Hct 45.0 (30.0-51.3) % MCV 94.2 (80-96) fL MCH 31.1 (27.7-33.6) pg MCHC 33.0 (32.2-35.4) g/dL RDW 13.8 (11.5-15.5) % Plt Count 178 (125-369) X10(3)uL MPV 8.5 (7.4-10.4) fL Neut % (Auto) 63.4 (46-82) % Lymph % (Auto) 25.6 (13-37) % [place] % (Auto) 9.8 (4-12) % Eos % (Auto) 1 (1.0-5.0) % Baso % (Auto) 1 (0-2) % Neut # (Auto) 4.3 (1.6-8.3) # Lymph # (Auto) 1.8 (0.6-5.0) # [place] # (Auto) 0.7 (0.0-1.3) # Eos # (Auto) 0.0 (0.0-0.8) # Baso # (Auto) 0.0 (0.0-0.2) # PT 10.4 (8.7-11.1) INR 1.07 (0.89-1.13) D-Dimer, Quantitative (0.0-0.59) mg/LFEU Sodium 135 (135-145) mmol/L Potassium 3.8 (3.5-5.3) mmol/L Chloride 99 L D (100-110) mmol/L Carbon Dioxide 29 (21-32) mmol/L BUN 32 H D (7-18) mg/dL Creatinine 1.3 (0.70-1.30) mg/dL Est Cr Clr Drug Dosing 43.85 mL/min Estimated GFR (MDRD) 53 L (>60) BUN/Creatinine Ratio 24.6 H (9-20) Glucose 114 (80-116) mg/dL Calcium 9.3 (8.6-10.2) mg/dL Troponin I (<0.017-0.056) ng/mL Urine Color (YELLOW) Urine Appearance (CLEAR) Urine pH (5.0-6.5) Ur Specific [place] (1.010-1.025) Urine Protein (NEGATIVE) mg/dL Urine Glucose (UA) (NEGATIVE) mg/dL Urine Ketones (NEGATIVE) mg/dL Urine Occult Blood (NEGATIVE) Urine Nitrite (NEGATIVE) Urine Bilirubin (NEGATIVE) Urine Urobilinogen (NEGATIVE) mg/dL Ur Leukocyte Esterase (NEGATIVE) Urine RBC (0) Urine WBC (0) Ur Squamous Epith Cells (NS,R,O) Urine Bacteria (NS) 05/27/18 05/27/18 05/27/18 Range/Units 11:12 11:12 15:40 WBC (4.5-12.0) X10-3/uL RBC (4.30-5.75) x10(6)uL Hgb (11.5-15.5) g/dL Hct (30.0-51.3) % MCV (80-96) fL MCH (27.7-33.6) pg MCHC (32.2-35.4) g/dL RDW (11.5-15.5) % Plt Count (125-369) X10(3)uL MPV (7.4-10.4) fL Neut % (Auto) (46-82) % Lymph % (Auto) (13-37) % [place] % (Auto) (4-12) % Eos % (Auto) (1.0-5.0) % Baso % (Auto) (0-2) % Neut # (Auto) (1.6-8.3) # Lymph # (Auto) (0.6-5.0) # [place] # (Auto) (0.0-1.3) # Eos # (Auto) (0.0-0.8) # Baso # (Auto) (0.0-0.2) # PT (8.7-11.1) INR (0.89-1.13) D-Dimer, Quantitative 0.43 (0.0-0.59) mg/LFEU Sodium (135-145) mmol/L Potassium (3.5-5.3) mmol/L Chloride (100-110) mmol/L Carbon Dioxide (21-32) mmol/L BUN (7-18) mg/dL Creatinine (0.70-1.30) mg/dL Est Cr Clr Drug Dosing mL/min Estimated GFR (MDRD) (>60) BUN/Creatinine Ratio (9-20) Glucose (80-116) mg/dL Calcium (8.6-10.2) mg/dL Troponin I 0.025 (<0.017-0.056) ng/mL Urine Color Yellow (YELLOW) Urine Appearance Clear (CLEAR) Urine pH 6.0 (5.0-6.5) Ur Specific [place] 1.010 (1.010-1.025) Urine Protein Negative (NEGATIVE) mg/dL Urine Glucose (UA) Normal (NEGATIVE) mg/dL Urine Ketones Negative (NEGATIVE) mg/dL Urine Occult Blood Negative (NEGATIVE) Urine Nitrite Negative (NEGATIVE) Urine Bilirubin Negative (NEGATIVE) Urine Urobilinogen Normal (NEGATIVE) mg/dL Ur Leukocyte Esterase Negative (NEGATIVE) Urine RBC 0-5 (0) Urine WBC 0-5 (0) Ur Squamous Epith Cells Rare (NS,R,O) Urine Bacteria Occasional H (NS) Med Orders - Current: Current Medications Heparin Sodium (Porcine) (Heparin Sodium) 5,000 units SUBCUT Q8H [facility] Last Admin: 05/28/18 05:59 Dose: 5,000 units Polyethylene Glycol (Miralax) 17 gm PO DAILY PRN PRN Reason: Constipation - Exam General: Alert, Oriented, Cooperative Neck: Supple Lungs: Normal Respiratory Effort, Crackles (Bases bilateral) Cardiovascular: Regular Rate, Regular Rhythm, No Murmurs Extremities: No Pedal Edema Skin: Warm, Dry, Intact Psy/Mental Status: Alert, Normal Affect, Normal Mood - Problem List & Annotations (1) Palliative care status SNOMED Code(s): 385898183 Code(s): Z51.5 - ENCOUNTER FOR PALLIATIVE CARE Status: Acute Current Visit: Yes (2) COPD (chronic obstructive pulmonary disease) SNOMED Code(s): 32325776 Code(s): J44.9 - CHRONIC OBSTRUCTIVE PULMONARY DISEASE, UNSPECIFIED Status : Acute Current Visit: Yes (3) Falls frequently SNOMED Code(s): 469728554 Code(s): R29.6 - REPEATED FALLS Status: Acute Current Visit: Yes (4) GERD (gastroesophageal reflux disease) SNOMED Code(s): 210162242 Code(s): K21.9 - GASTRO-ESOPHAGEAL REFLUX DISEASE WITHOUT ESOPHAGITIS Status: Acute Current Visit: No Qualifiers: Esophagitis presence: without esophagitis Qualified Code(s): K21.9 - Gastro -esophageal reflux disease without esophagitis - Problem List Review Problem List Initiated/Reviewed/Updated: Yes - My Orders Last 24 Hours: My Active Orders 05/27/18 11:17 Consult to Occupational Therapy [OT Evaluation and Treatment] [CONS] Routine Consult to Physical Therapy [PT Evaluation and Treatment] [CONS] Routine 05/27/18 14:05 SCD [Sequential Compression Device] [OM.PC] Routine 05/27/18 17:16 CXR [Chest 2V] [CR] Routine - Plan Plan:: 1. Chest x-ray shows possible infiltrate left base wait for radiology interpretation. Start Rocephin and Zithromax. 2. Reviewed his chart from the clinic and I'm not sure why he's taken some of the medicines he is. I will restart one of his blood pressure medicines and is albuterol. And I will talk to his primary physician to find out why he's on all his medicines. He does not know either. 3. PT/OT/social insurance analyst to see.
[2018-05-28] MEDS ORDERED: Albuterol 8 GM Inhaler INH PRN (09:20)
[2018-05-28] MEDS ORDERED: cefTRIAXone 1,000 MG in Sodium Chloride 0.9% 50 ML IV SCH (09:30)
[2018-05-28] MEDS ORDERED: Azithromycin 500 MG in Sodium Chloride 0.9% 250 ML IV SCH ×2 (10:00→10:30)
[2018-05-28] MEDS ORDERED: cefTRIAXone 1 GM Vial IVPUSH SCH (10:00)
[2018-05-28] MEDS ORDERED: Sodium Chloride 0.9% 10 ML Syringe FLUSH PRN (10:10)
[2018-05-28] MEDS: Hydrochlorothiazide/Lisinopril 12.5-20 MG Tab PO SCH (10:12)
--- NOTE | 2018-05-28 10:33 | CR ---
INDICATION: Shortness of breath. CHEST: PA and lateral views of the chest were obtained 05/27/18 and compared with 05/26/18 and 11/20/17. The pulmonary markings are essentially unchanged, compatible with moderately severe pulmonary fibrosis, and making it difficult to exclude areas of patchy bronchopneumonia. However, no definite consolidating pneumonia or effusion was seen. The heart did not appear to be grossly enlarged but was slightly enlarged in appearance with a cardiothoracic ratio of 16/31. No definite evidence of CHF is seen. Overlying EKG leads are again noted. IMPRESSION: 1. Chest appears stable - unchanged from previous studies. No definite acute process; however, it is difficult to exclude minimal patchy bronchopneumonia superimposed on pulmonary fibrosis. 2. ASHD with mild cardiomegaly. 3. Demineralization raising question of osteoporosis or osteomalacia - correlate clinically. 4. Degenerative changes in the mid to lower thoracic spine. MTDD
--- NOTE | 2018-05-28 10:46 | US ---
INDICATION: Followup left carotid stenosis, recent fall. DUPLEX ULTRASOUND CEREBRAL ARTERIES: Utilizing 2-D real time, duplex Doppler spectral analysis and color flow imaging, examination of the cerebral arteries was obtained, including the common carotid arteries, internal carotid arteries, external carotid arteries, vertebral and subclavian arteries. Examination was obtained 05/27/18 and is compared with 08/06/13. Peak systolic velocities have elevated somewhat in the proximal left ICA to 255 systolic, 81 diastolic, compared with 195 and 38 on the previous study from 2013. However, on the right, the peak systolic velocity has markedly decreased in the proximal ICA to 34 and 9 cm/second, compared with 275 and 75 cm/second. This appearance is compatible with right-sided endarterectomy - correlate clinically. Intimal thickening is noted, as well as plaques throughout the common carotid arteries, extending into the bifurcations and branches. At this time, the degree of plaque appears to be more severe on the left than on the right. Plaques are partially calcified, somewhat heterogeneous, and may be ulcerated. This is especially true on the left. Degree of stenosis is felt to be in the range of 50-69% in the proximal left ICA, and there is no significant stenosis - 1-15% stenosis on the right. ICA/CCA ratios were 0.58 and 1.94 on the right and left respectively. Antegrade vertebral artery flow bilaterally is noted. IMPRESSION: 1. Post endarterectomy changes on the right with stenosis in the range of 1-15% . 2. Stenosis in the range of 50-69% in the proximal left ICA. 3. Irregular calcified heterogeneous plaques are noted, which could be ulcerated, especially on the left. 4. Antegrade vertebral artery flow is noted bilaterally. [facility]
[2018-05-29] MEDS: Heparin Sodium 5,000 Units/ML Vial SUBCUT SCH (05:18)
[2018-05-29] MEDS ORDERED: Pantoprazole 40 MG Tab.CR PO SCH (06:00)
--- NOTE | 2018-05-29 07:07 | PCM.PN ---
- General Info Date of Service: 05/29/18 Admission Dx/Problem (Free Text): Patient has no concerns. He has no chest pain or shortness of breath. Walking with a walker's helping him. PT is going well. Chest x-ray was read as pulmonary fibrosis, rule out infiltrate. - Patient Data Vitals - Most Recent: Last Vital Signs Temp 98.8 F 05/29/18 04:00 Pulse 84 05/29/18 04:00 Resp 18 05/29/18 04:00 BP 120/68 05/29/18 04:00 Pulse Ox 94 L 05/29/18 04:00 Weight - Most Recent: 179 lb Med Orders - Current: Current Medications Albuterol (Ventolin Hfa) 0 gm INH Q4H PRN PRN Reason: Shortness of Breath Lisinopril/HCTZ (Lisinopril/Hctz 20-12.5 Mg) 1 tab PO DAILY [facility] Last Admin: 05/28/18 10:12 Dose: 1 tab Heparin Sodium (Porcine) (Heparin Sodium) 5,000 units SUBCUT Q8H [facility] Last Admin: 05/29/18 05:18 Dose: 5,000 units Pantoprazole Sodium (Protonix) 40 mg PO DAILY@0600 [facility] Last Admin: 05/29/18 05:19 Dose: 40 mg Polyethylene Glycol (Miralax) 17 gm PO DAILY PRN PRN Reason: Constipation Sodium Chloride (Saline Flush) 10 ml FLUSH ASDIRECTED PRN PRN Reason: Keep Vein Open Last Admin: 05/28/18 11:51 Dose: 10 ml Discontinued Medications Ceftriaxone Sodium (Rocephin) 1 gm IVPUSH Q24H [facility] Last Admin: 05/28/18 10:24 Dose: 1 gm Azithromycin 500 mg/ Sodium (Chloride) 250 mls @ 250 mls/hr IV Q24H [facility] Azithromycin 500 mg/ Sodium (Chloride) 250 mls @ 250 mls/hr IV Q24H [facility] Last Admin: 05/28/18 10:31 Dose: 250 mls/hr - Exam General: Alert, Oriented, Cooperative Lungs: Clear to Auscultation, Normal Respiratory Effort Cardiovascular: Regular Rate, Regular Rhythm Extremities: No Pedal Edema - Problem List & Annotations (1) Palliative care status SNOMED Code(s): 942506825 Code(s): Z51.5 - ENCOUNTER FOR PALLIATIVE CARE Status: Acute Current Visit: Yes (2) COPD (chronic obstructive pulmonary disease) SNOMED Code(s): 91059806 Code(s): J44.9 - CHRONIC OBSTRUCTIVE PULMONARY DISEASE, UNSPECIFIED Status : Acute Current Visit: Yes (3) Falls frequently SNOMED Code(s): 046255757 Code(s): R29.6 - REPEATED FALLS Status: Acute Current Visit: Yes (4) GERD (gastroesophageal reflux disease) SNOMED Code(s): 541408148 Code(s): K21.9 - GASTRO-ESOPHAGEAL REFLUX DISEASE WITHOUT ESOPHAGITIS Status: Acute Current Visit: No Qualifiers: Esophagitis presence: without esophagitis Qualified Code(s): K21.9 - Gastro -esophageal reflux disease without esophagitis (5) Carotid stenosis Status: Acute Current Visit: Yes Qualifiers: Laterality: unspecified laterality Qualified Code(s): I65.29 - Occlusion and stenosis of unspecified carotid artery - Problem List Review Problem List Initiated/Reviewed/Updated: Yes - My Orders Last 24 Hours: My Active Orders 05/28/18 09:20 Albuterol [Ventolin HFA] 0 gm INH Q4H PRN 05/28/18 09:30 Hydrochlorothiazide/Lisinopril [Lisinopril/HCTZ 20-12.5 MG] 1 tab PO DAILY 05/28/18 10:10 Sodium Chloride 0.9% [Saline Flush] 10 ml FLUSH ASDIRECTED PRN Saline Lock Insert [OM.PC] Routine 05/29/18 06:00 Pantoprazole [ProTONIX] 40 mg PO DAILY@0600 - Plan Plan:: 1 transfer to the [facility]. 2. I talked about CODE STATUS. He wants his son to determine any situation. So he'll be a full code. 3. Carotid ultrasound was done that shows stenosis. I recommend referral to vascular surgery. He does not want to do this. 4. Note records he was put on nitroglycerin for chest pain hospitalization. He was on nitroglycerin and stopped 2 months ago he has no chest pain. But since he has carotid stenosis I some easy a coronary artery disease. I recommend chemical stress test to rule out or in coronary artery disease. He does not want to do this either.
--- NOTE | 2018-05-29 07:11 | PCM.DCSUM1 ---
Discharge Summary - Hospital Course Free Text/Narrative:: Hospital course-patient was admitted. Chest x-ray appeared to have some pneumonia. Restart Rocephin and Zithromax. The next day the radiologist felt it was more fibrosis and could not rule out pneumonia. He was asymptomatic for coughing or fevers. Little shortness of breath that improved with his stay. He wanted his son and his risk CODE STATUS so he was put on DNR here but he'll be put on full code at the care home. Patient had PT/OT is using a walker which did help him walking. He was very grateful for this. He had a carotid ultrasound that showed stenosis and a previous endarterectomy. He had not taken his medicine for 2 months it is hard to determine from the records and talking primary physician what he should be on. He has no chest pain although he was in the hospital a while back for chest pain syndrome Imdur. No chest pain here without Imdur. He'll be sent home with all his medicines except Imdur. I did discuss having a chemical stress test to rule out order artery disease and then seen vascular surgeon for his chronic stenosis. He does not want to do this. Brief History: Mr. Renee is an 78 year old male with PMH significant for right carotid artery stenosis, asthma, atrial fibrillation (not on anti-coagulation), hypertension who presents as a direct admit from [facility]. The patient was noted to have atrial fibrillation with RVR at the clinic yesterday. He reports that he is feeling well at this time but has been sustaining falls multiple times over the last month. He does not lose conciousness and recalls all preceding events. No history of seizures. Diagnosis: Stroke: No - Discharge Data Discharge Date: 05/29/18 Discharge Disposition: Home, Self-Care 01 Condition: Good - Discharge Diagnosis/Problem(s) (1) Palliative care status SNOMED Code(s): 079522562 ICD Code: Z51.5 - ENCOUNTER FOR PALLIATIVE CARE Status: Acute Current Visit: Yes (2) COPD (chronic obstructive pulmonary disease) SNOMED Code(s): 02979830 ICD Code: J44.9 - CHRONIC OBSTRUCTIVE PULMONARY DISEASE, UNSPECIFIED Status : Acute Current Visit: Yes (3) Falls frequently SNOMED Code(s): 410006244 ICD Code: R29.6 - REPEATED FALLS Status: Acute Current Visit: Yes (4) GERD (gastroesophageal reflux disease) SNOMED Code(s): 850523018 ICD Code: K21.9 - GASTRO-ESOPHAGEAL REFLUX DISEASE WITHOUT ESOPHAGITIS Status: Acute Current Visit: No Qualifiers: Esophagitis presence: without esophagitis Qualified Code(s): K21.9 - Gastro -esophageal reflux disease without esophagitis (5) Carotid stenosis Status: Acute Current Visit: Yes Qualifiers: Laterality: unspecified laterality Qualified Code(s): I65.29 - Occlusion and stenosis of unspecified carotid artery - Patient Summary/Data Consults: Consultations 05/27/18 11:17 Consult to Occupational Therapy [OT Evaluation and Treatment] [CONS] Routine Please Evaluate and Treat. OT Reason for Consult: Strengthening This query below is only for informational purposes and is not editable. Admission Diagnosis/Problem: Falls Consult to Physical Therapy [PT Evaluation and Treatment] [CONS] Routine Please Evaluate and Treat. PT Reason for Consult: Strengthening This query below is only for informational purposes and is not editable. Admission Diagnosis/Problem: Falls - Patient Instructions Diet: Heart Healthy Diet Activity: As Tolerated Driving: Do Not Drive Showering/Bathing: May Shower Other/Special Instructions: 1. Transfer to home with PT/OT. - Discharge Plan Home Medications: Home Meds Albuterol Sulfate [Proair Hfa] 2 puff IH Q4H PRN 05/12/13 [History] Omeprazole [Prilosec] 20 mg PO DAILY 05/12/13 [History] Verapamil HCl [Verapamil ER] 120 mg PO DAILY 05/12/13 [History] Clopidogrel Bisulfate [Clopidogrel] 75 mg PO DAILY 01/14/14 [History] Aspirin [Halfprin] 81 mg PO DAILY 11/20/17 [History] Lisinopril/Hydrochlorothiazide [Lisinopril-Hctz 20-12.5 mg Tab] 1 tab PO DAILY 11/20/17 [History] Patient Handouts: Venous Thromboembolism Prevention - Discharge Summary/Plan Comment DC Time >30 min.: No - Patient Data Vitals - Most Recent: Last Vital Signs Temp 98.8 F 05/29/18 04:00 Pulse 84 05/29/18 04:00 Resp 18 05/29/18 04:00 BP 120/68 05/29/18 04:00 Pulse Ox 94 L 05/29/18 04:00 Weight - Most Recent: 179 lb Med Orders - Current: Current Medications Albuterol (Ventolin Hfa) 0 gm INH Q4H PRN PRN Reason: Shortness of Breath Lisinopril/HCTZ (Lisinopril/Hctz 20-12.5 Mg) 1 tab PO DAILY [facility] Last Admin: 05/28/18 10:12 Dose: 1 tab Heparin Sodium (Porcine) (Heparin Sodium) 5,000 units SUBCUT Q8H [facility] Last Admin: 05/29/18 05:18 Dose: 5,000 units Pantoprazole Sodium (Protonix) 40 mg PO DAILY@0600 [facility] Last Admin: 05/29/18 05:19 Dose: 40 mg Polyethylene Glycol (Miralax) 17 gm PO DAILY PRN PRN Reason: Constipation Sodium Chloride (Saline Flush) 10 ml FLUSH ASDIRECTED PRN PRN Reason: Keep Vein Open Last Admin: 05/28/18 11:51 Dose: 10 ml Discontinued Medications Ceftriaxone Sodium (Rocephin) 1 gm IVPUSH Q24H [facility] Last Admin: 05/28/18 10:24 Dose: 1 gm Azithromycin 500 mg/ Sodium (Chloride) 250 mls @ 250 mls/hr IV Q24H [facility] Azithromycin 500 mg/ Sodium (Chloride) 250 mls @ 250 mls/hr IV Q24H [facility] Last Admin: 05/28/18 10:31 Dose: 250 mls/hr
[2018-05-29 08:14] VITALS: BP 119/43
[2018-05-29] MEDS: Hydrochlorothiazide/Lisinopril 12.5-20 MG Tab PO SCH (08:19)
[2018-05-29] MEDS ORDERED: Tuberculin, PPD 5 Units/0.1 ML 1 ML MDV IDERM ONE (08:26)
== END 2018-05-29 14:06 | DRG 195 ==
LOC: FB.MS 09:04 → OBSVTOIN 10:42 → FB.MS 10:42
PROVIDERS: ADMIT Family Medicine; ATTEND Family Medicine
DX: J18.9 Pneumonia, unspecified organism (principal); R29.6 Repeated falls; I10 Essential (primary) hypertension; Z86.73 Personal history of transient ischemic attack (TIA), and cerebral infarction without residual deficits; I48.91 Unspecified atrial fibrillation; I65.29 Occlusion and stenosis of unspecified carotid artery; J44.9 Chronic obstructive pulmonary disease, unspecified; M19.90 Unspecified osteoarthritis, unspecified site; Z85.46 Personal history of malignant neoplasm of prostate; K21.9 Gastro-esophageal reflux disease without esophagitis; H54.7 Unspecified visual loss; Z85.038 Personal history of other malignant neoplasm of large intestine; Z79.82 Long term (current) use of aspirin; Z87.442 Personal history of urinary calculi; Z53.29 Procedure and treatment not carried out because of patient's decision for other reasons
CPT/HCPCS: 36415; 71046; 80048; 81001; 84484; 85025; 85379; 85610; 86580; 93005; 93880; 97110-GP; 97112-GP; 97161-GP; 97165-GO; 97530-GO; A9270-GY; J0456; J0696; J1644; J7050

== ENCOUNTER 2018-06-09 10:43 | Emergency (ER) | payer MEDICARE, MEDICAID ==
--- NOTE | 2018-06-09 10:53 | EDM.PDOC ---
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 Patient has a chronic cough due to COPD, no worse than usual. Denies weight loss, fever, chest pain, hemoptysis or night sweats. Patient states had positive TB test while in [facility] many years ago. Denies known recent TB exposure or recent travel. Sent to the ED to rule out active TB. Associated Symptoms: Reports: Cough (chronic) - Related Data Allergies Allergy/AdvReac Type Severity Reaction Status Date / Time No Known Allergies Allergy Verified 06/09/18 11:59 Home Meds: Home Meds Albuterol Sulfate [Proair Hfa] 2 puff IH Q4H PRN 05/12/13 [History] Omeprazole [Prilosec] 20 mg PO DAILY 05/12/13 [History] Clopidogrel Bisulfate [Clopidogrel] 75 mg PO DAILY 01/14/14 [History] Aspirin [Halfprin] 81 mg PO DAILY 11/20/17 [History] Lisinopril/Hydrochlorothiazide [Lisinopril-Hctz 20-12.5 mg Tab] 1 tab PO DAILY 11/20/17 [History] Past Medical History HEENT History: Reports: Impaired Vision, Other (See Below) Other HEENT History: wears glasses Cardiovascular History: Reports: Afib, Hypertension Other Cardiovascular History: IRREGULAR HEART BEAT Respiratory History: Reports: Asthma, Bronchitis, Recurrent, COPD Gastrointestinal History: Reports: Hiatal Hernia Genitourinary History: Reports: Renal Calculus, Other (See Below) Other Genitourinary History: bloody urine, enlarged left testicle Musculoskeletal History: Reports: Arthritis Other Musculoskeletal History: patellar fracture Neurological History: Reports: CVA Other Neuro History: periods of dizziness with giddiness- according to [facility] Oncologic (Cancer) History: Reports: Colon, Prostate - Infectious Disease History Infectious Disease History: Reports: Hepatitis C - Past Surgical History Cardiovascular Surgical History: Reports: Carotid Endarterectomy GI Surgical History: Reports: Hernia, Abdominal Musculoskeletal Surgical History: Reports: Arthroscopic Knee, Shoulder Surgery Social & Family History - Family History Family Medical History: Noncontributory - Tobacco Use Smoking Status *Q: Former Smoker Tobacco Use Within Last Twelve Months: No - Caffeine Use Caffeine Use: Reports: Coffee - Living Situation & Occupation Living situation: Reports: Occupation: Retired ED ROS GENERAL - Review of Systems Review Of Systems: ROS reveals no pertinent complaints other than HPI. ED EXAM, GENERAL - Physical Exam Exam: See Below Exam Limited By: No Limitations General Appearance: Alert, WD/WN, No Apparent Distress Ears: Normal External Exam Nose: Normal Inspection Throat/Mouth: Normal Inspection Head: Atraumatic, Normocephalic Neck: Normal Inspection Respiratory/Chest: No Respiratory Distress, Lungs Clear, Normal Breath Sounds Cardiovascular: Regular Rate, Rhythm, No Murmur GI/Abdominal: No Distention Back Exam: Full Range of Motion Extremities: Normal Range of Motion Neurological: Alert, Normal Cognition Psychiatric: Normal Affect, Normal Mood Skin Exam: Warm, Dry Course - Vital Signs Last Recorded V/S: Last Vital Signs Temp 36.6 C 06/09/18 10:50 Pulse 99 06/09/18 12:15 Resp 20 06/09/18 12:15 BP 146/87 H 06/09/18 12:15 Pulse Ox 98 06/09/18 12:15 - Orders/Labs/Meds Labs: Laboratory Tests 06/09/18 06/09/18 Range/Units 10:59 10:59 WBC 7.3 (4.5-12.0) X10-3/uL RBC 4.83 (4.30-5.75) x10(6)uL Hgb 15.4 (11.5-15.5) g/dL Hct 45.0 (30.0-51.3) % MCV 93.2 (80-96) fL MCH 32.0 (27.7-33.6) pg MCHC 34.3 (32.2-35.4) g/dL RDW 13.5 (11.5-15.5) % Plt Count 258 (125-369) X10(3)uL MPV 8.0 (7.4-10.4) fL Neut % (Auto) 65.9 (46-82) % Lymph % (Auto) 24.9 (13-37) % [place] % (Auto) 7.2 (4-12) % Eos % (Auto) 1 (1.0-5.0) % Baso % (Auto) 1 (0-2) % Neut # (Auto) 4.9 (1.6-8.3) # Lymph # (Auto) 1.8 (0.6-5.0) # [place] # (Auto) 0.5 (0.0-1.3) # Eos # (Auto) 0.1 (0.0-0.8) # Baso # (Auto) 0.0 (0.0-0.2) # Sodium 136 (135-145) mmol/L Potassium 4.6 (3.5-5.3) mmol/L Chloride 99 L (100-110) mmol/L Carbon Dioxide 31 (21-32) mmol/L BUN 17 D (7-18) mg/dL Creatinine 1.2 (0.70-1.30) mg/dL Est Cr Clr Drug Dosing TNP Estimated GFR (MDRD) 58 L (>60) BUN/Creatinine Ratio 14.2 (9-20) Glucose 118 H (80-116) mg/dL Calcium 9.7 (8.6-10.2) mg/dL Total Bilirubin 0.4 (0.1-1.3) mg/dL AST 15 D (5-25) IU/L ALT 21 D (12-36) U/L Alkaline Phosphatase 121 H (56-112) IU/L Total Protein 7.8 (6.0-8.0) g/dL Albumin 3.5 (3.2-4.6) g/dL Globulin 4.3 g/dL Albumin/Globulin Ratio 0.8 - Radiology Interpretation Free Text/Narrative:: CXR: Possible superimposed RLL infiltrate, no cavitary lesion to suggest active TB (per Dr. Page) - Re-Assessments/Exams Free Text/Narrative Re-Assessment/Exam: 06/09/18 12:[address] Stone ([facility]), recommends INH and Vit B6 daily for 9 months[address] Report given to Dr. Bonilla. Departure - Departure Time of Disposition: 12:57 Disposition: Home, Self-Care 01 Condition: Good Clinical Impression: Latent tuberculosis Pneumonia Qualifiers: Pneumonia type: due to unspecified organism Laterality: right Lung location: lower lobe of lung Qualified Code(s): J18.1 - Lobar pneumonia, unspecified organism - Discharge Information *PRESCRIPTION DRUG MONITORING PROGRAM REVIEWED*: No *COPY OF PRESCRIPTION DRUG MONITORING REPORT IN PATIENT ELLA: Not Applicable Instructions: Community-Acquired Pneumonia, Adult Referrals: Jg Nash MD [Primary Care Provider] - 1 Week Forms: ED Department Discharge Additional Instructions: Discharge back to [facility]. Orders written for Doxycycline 100mg bid x 7 days, INH 300mg daily x 9 months, Vit B6 25mg daily x 9 months.
--- NOTE | 2018-06-09 12:30 | CR ---
INDICATION: Positive TB test. CHEST: PA and lateral views of the chest were obtained 06/09/18 and compared with 05/27/18 and 05/26/18. Areas of heavy markings are again noted, compatible with pulmonary fibrosis. However, at the right lower lung field laterally, there is an appearance of somewhat increased density, which could represent a focal area of superimposed pneumonia. Superimposed patchy pneumonia cannot be excluded in the areas of pulmonary fibrosis seen previously also. Findings compatible with COPD, DISH, and possibly osteoporosis are again noted, as well as evidence of ASHD with mild cardiomegaly. COPD is also probable. IMPRESSION: 1. Possible superimposed area of infiltrate - pneumonia right lower lung field laterally. Other areas of superimposed infiltrate cannot be excluded with the areas of probable pulmonary fibrosis seen. 2. ASHD with cardiomegaly. 3. Probable COPD. 4. Possible DISH in the spine, as well as demineralization suggesting osteoporosis. MTDD
[2018-06-09 12:55] VITALS: BP 146/87
== END 2018-06-09 13:00 | disposition home or self-care (01) ==
LOC: FB.ED 10:43
DX: J18.1 Lobar pneumonia, unspecified organism (principal); R76.11 Nonspecific reaction to tuberculin skin test without active tuberculosis; I48.91 Unspecified atrial fibrillation; I10 Essential (primary) hypertension; J45.909 Unspecified asthma, uncomplicated; Z87.891 Personal history of nicotine dependence; Z79.899 Other long term (current) drug therapy; Z79.82 Long term (current) use of aspirin; Z79.01 Long term (current) use of anticoagulants
CPT/HCPCS: 36415; 71046; 80053; 85025; 99283

== ENCOUNTER 2018-08-21 12:23 | Emergency (ER) | payer MEDICARE, MEDICAID ==
[2018-08-21 12:35] VITALS: BP 132/64
--- NOTE | 2018-08-21 12:42 | EDM.PDOC ---
ED HPI GENERAL MEDICAL PROBLEM - General Chief Complaint: General Stated Complaint: FOLLOW UP CHEST XR Time Seen by Provider: 08/21/18 12:23 Source of Information: Reports: Patient, Family (son) History Limitations: Reports: No Limitations - History of Present Illness INITIAL COMMENTS - FREE TEXT/NARRATIVE: 78 y.o.w.m was seen yesterday at he clinic for C?P where a CXR was taken. The nurse read the CXR and noticed the Phrase " unusual bulging of left ventricular ". Pt and Son wanted to know what that means. No C/P no N/V/D. no SOB or any other acute med issues. BP 132/64 RR 18 Pulse ox 100% Pulse 89 Temp 36.4 Onset Date: 08/20/18 Onset Time: 10:00 Duration: Hour(s): Location: Reports: Other (Pt has no clinical issues, wants to know what the CXR reading means. ) Quality: Reports: Other (no pain/discomfort) Associated Symptoms: Reports: No Other Symptoms Generalized Pain Score (Numeric/FACES): 5 - Related Data Allergies Allergy/AdvReac Type Severity Reaction Status Date / Time No Known Allergies Allergy Verified 08/21/18 12:37 Home Meds: Home Meds Albuterol Sulfate [Proair Hfa] 2 puff IH Q4H PRN 05/12/13 [History] Omeprazole [Prilosec] 20 mg PO DAILY 05/12/13 [History] Clopidogrel Bisulfate [Clopidogrel] 75 mg PO DAILY 01/14/14 [History] Aspirin [Halfprin] 81 mg PO DAILY 11/20/17 [History] Lisinopril/Hydrochlorothiazide [Lisinopril-Hctz 20-12.5 mg Tab] 1 tab PO DAILY 11/20/17 [History] Acetaminophen [Mapap] 650 mg PO Q4H PRN 08/21/18 [History] Bisacodyl [Dulcolax] 10 mg RC Q3D 08/21/18 [History] Citalopram Hydrobromide [Celexa] 5 mg PO DAILY 08/21/18 [History] Isoniazid 300 mg PO DAILY 08/21/18 [History] Loperamide [Imodium AD] 2 mg PO DAILY PRN 08/21/18 [History] Pyridoxine HCl 25 mg PO DAILY 08/21/18 [History] Past Medical History HEENT History: Reports: Impaired Vision, Other (See Below) Other HEENT History: wears glasses Cardiovascular History: Reports: Afib, Hypertension Other Cardiovascular History: IRREGULAR HEART BEAT Respiratory History: Reports: Asthma, Bronchitis, Recurrent, COPD Gastrointestinal History: Reports: Hiatal Hernia Genitourinary History: Reports: Renal Calculus, Other (See Below) Other Genitourinary History: bloody urine, enlarged left testicle Musculoskeletal History: Reports: Arthritis Other Musculoskeletal History: patellar fracture Neurological History: Reports: CVA Other Neuro History: periods of dizziness with giddiness- according to [facility] Oncologic (Cancer) History: Reports: Colon, Prostate - Infectious Disease History Infectious Disease History: Reports: Hepatitis C - Past Surgical History Cardiovascular Surgical History: Reports: Carotid Endarterectomy GI Surgical History: Reports: Hernia, Abdominal Musculoskeletal Surgical History: Reports: Arthroscopic Knee, Shoulder Surgery Social & Family History - Family History Family Medical History: Noncontributory - Tobacco Use Smoking Status *Q: Former Smoker Used Tobacco, but Quit: Yes Month/Year Tobacco Last Used: 1988 - Caffeine Use Caffeine Use: Reports: Coffee, Soda, Tea - Recreational Drug Use Recreational Drug Use: No - Living Situation & Occupation Living situation: Reports: Occupation: Retired ED ROS GENERAL - Review of Systems Review Of Systems: See Below Constitutional: Reports: No Symptoms HEENT: Reports: No Symptoms Respiratory: Reports: No Symptoms Cardiovascular: Reports: No Symptoms Endocrine: Reports: No Symptoms GI/Abdominal: Reports: No Symptoms : Reports: No Symptoms Musculoskeletal: Reports: No Symptoms Skin: Reports: No Symptoms Neurological: Reports: No Symptoms Psychiatric: Reports: No Symptoms Hematologic/Lymphatic: Reports: No Symptoms Immunologic: Reports: No Symptoms ED EXAM, GENERAL - Physical Exam Exam: See Below Exam Limited By: No Limitations General Appearance: Alert, WD/WN, No Apparent Distress Eye Exam: Bilateral Eye: Normal Inspection Ears: Normal External Exam Ear Exam: Bilateral Ear: Auricle Normal Nose: Normal Inspection, Normal Mucosa, No Blood Throat/Mouth: Normal Lips, Normal Voice, No Airway Compromise Head: Atraumatic, Normocephalic Neck: Normal Inspection, Supple, Non-Tender, Full Range of Motion Respiratory/Chest: No Respiratory Distress Cardiovascular: Normal Peripheral Pulses Peripheral Pulses: 1+: Brachial (R) GI/Abdominal: Normal Bowel Sounds, Soft, Non-Tender, No Organomegaly, Pelvis Stable (Male) Exam: Deferred Rectal (Males) Exam: Deferred Back Exam: Normal Inspection, Full Range of Motion Extremities: Normal Inspection, Normal Range of Motion Neurological: Alert, Oriented, CN II-XII Intact, Normal Cognition, Other (came with wheel chair ) Psychiatric: Normal Affect Skin Exam: Warm, Dry, Intact, Normal Color, No Rash Lymphatic: No Adenopathy Course - Vital Signs Text/Narrative:: 78 y.o.w.m was seen yesterday at he clinic for C?P where a CXR was taken. The nurse read the CXR and noticed the Phrase " unusual bulging of left ventricular ". Pt and Son wanted to know what that means. No C/P no N/V/D. no SOB or any other acute med issues. BP 132/64 RR 18 Pulse ox 100% Pulse 89 Temp 36.4 PE: WNWD W Male from [place] in his usual state of health Impression: CXR showed unusual bulging of left ventricle. Consulted Dr. Dias who read the CXR: Recommended echocardiogram Reexam: Case was discussed with son and Pt, Appointment for an Echocardiogram was scheduled for 10 am this Saturday Plan: D/C with instructions Last Recorded V/S: Last Vital Signs Temp 36.4 C 08/21/18 12:34 Pulse 89 08/21/18 12:34 Resp 16 08/21/18 12:34 BP 132/64 08/21/18 12:34 Pulse Ox 100 08/21/18 12:34 Departure - Departure Time of Disposition: 12:40 Disposition: Home, Self-Care 01 Condition: Good Clinical Impression: Ventricular aneurysm - Discharge Information Referrals: Jg Nash MD [Primary Care Provider] - Forms: ED Department Discharge Additional Instructions: Please follow up with imaging this Saturday at 10 am for an echocardiogram of your heart to R/O an aneurysm of your left ventricle
== END 2018-08-21 12:53 | disposition home or self-care (01) ==
LOC: FB.ED 12:23
DX: I25.3 Aneurysm of heart (principal); I10 Essential (primary) hypertension; I48.91 Unspecified atrial fibrillation; J44.9 Chronic obstructive pulmonary disease, unspecified; Z86.73 Personal history of transient ischemic attack (TIA), and cerebral infarction without residual deficits; Z79.899 Other long term (current) drug therapy; Z79.82 Long term (current) use of aspirin; Z87.891 Personal history of nicotine dependence
CPT/HCPCS: 99282; 99283

== ENCOUNTER 2018-10-21 06:31 | Day surgery (SDC) | payer MEDICARE, MEDICAID ==
[2018-10-21] MEDS ORDERED: Glycopyrrolate 0.2 MG/ML 5 ML MDV IV ONE (06:32)
[2018-10-21] MEDS ORDERED: Ondansetron 4 MG/2 ML SDV IVPUSH ONE (06:32)
[2018-10-21] MEDS ORDERED: Lidocaine 2% 100 MG/5 ML Syringe IVPUSH ONE (06:32)
[2018-10-21] MEDS ORDERED: Phenylephrine 1% 10 MG/ML SDV IV ONE (06:32)
[2018-10-21] MEDS ORDERED: fentaNYL 100 MCG/2 ML SDV IV ONE (06:32)
[2018-10-21] MEDS ORDERED: Dexamethasone 4 MG/ML 5 ML MDV IVPUSH ONE (06:32)
[2018-10-21] MEDS ORDERED: Dexmedetomidine 200 MCG/2 ML SDV IV ONE (06:32)
[2018-10-21] MEDS ORDERED: Propofol 200 MG/20 ML SDV IV ONE (06:32)
[2018-10-21] MEDS ORDERED: Lactated Ringers 1,000 ML IV SCH (07:00)
[2018-10-21] MEDS ORDERED: ceFAZolin 2 GM in Premix Bag 1 BAG IV ONE (08:30)
[2018-10-21] MEDS ORDERED: Bupivacaine 0.5% 30 ML SDV ONE (09:27)
[2018-10-21] MEDS ORDERED: Lidocaine 1% with EPINEPHrine 1:100,000 20 ML MDV ONE (09:27)
--- NOTE | 2018-10-21 09:50 | PCM.OPNOTE ---
- General Post-Op/Procedure Note Date of Surgery/Procedure: 10/21/18 Operative Procedure(s): lih repair with mesh Findings: indirect hernia incarcerated omentum Pre Op Diagnosis: lih without obstruction or gangrene Post-Op Diagnosis: Same Anesthesia Technique: General LMA, Local (8 ml 1% lido with epi/0.5% buvipicaine ) Primary Surgeon: Seven Braxton Anesthesia Provider: Angelina Calderon Pathology: hernia sac and contents Complications: None Condition: Good Free Text/Narrative:: see dictation
[2018-10-21] MEDS ORDERED: Acetaminophen/HYDROcodone 325-5 MG Tab PO PRN (09:54)
[2018-10-21 12:13] VITALS: BP 126/79
--- NOTE | 2018-10-21 12:21 | OR ---
DATE OF OPERATION: 10/21/2018 SURGEON: Seven Braxton MD PROCEDURE PERFORMED: Left inguinal hernia repair. PREOPERATIVE DIAGNOSIS: Left inguinal hernia without obstruction or gangrene. POSTOPERATIVE DIAGNOSIS: Left inguinal hernia without obstruction or gangrene. INDICATIONS FOR PROCEDURE: This is an 78-year-old white male who had a nonreducible left inguinal hernia. He was offered and accepted repair. INTRAOPERATIVE FINDINGS: An indirect hernia with approximately a foot of incarcerated omentum was encountered. This was repaired with a Phasix extra- large plug and patch, lot number [id number], reference number [id number] with an expiration date of 12/18/2019, and was also fixed into position with OptiFix Absorbable Fixation System with a lot number [id number], reference #[id number], expiration date 08/17/2020. ANESTHESIA: A total of 8 mL of 1:1 mixture of 1% lidocaine with epinephrine and 0.5% bupivacaine was used. DESCRIPTION OF OPERATION: After an excellent LMA anesthetic was administered, the patient was prepped and draped in the usual sterile manner. Local was used to infiltrate the planned incision site which was approximately fci between the anterior-superior iliac spine and the symphysis pubis. A skin wheal was also raised medially to the anterior-superior iliac spine and deep intramuscular injection was carried out to get the ilioinguinal and general femoral nerves as well. Our incision was then made, superficial inferior epigastric vessels were clamped, divided, and tied with 2-0 Vicryl ties. The aponeurosis of the external oblique was exposed. More local was injected underneath. A felix was made in the aponeurosis and carried out through the external ring. The large cord was then mobilized and controlled with a 1 inch Zenaida drain and skeletonizing the cord. We did identify the hernia sac. The hernia sac was entered and incarcerated omentum was delivered out of the hernia sac itself. This was transected at the base with the LigaSure as well as being divided by clamp, dividing and tying with 2-0 Vicryl ties. This allowed us to reduce the omentum back into the intestine. The hernia sac was then dissected free from the surrounding cord structures, transected. Suture ligature of 0 Ethibond was placed after twisting the remnant of the hernia sac and tied off. The remnant of the hernia sac was then reduced into the internal canal. Interestingly, despite the size of his hernia, the defect was primarily located in the area of the internal ring and this was easily amenable to repair with an extra-large plug and patch system. Phasix plug was inserted into the defect, tacked into position with interrupted 2-0 Vicryl suture. The mesh was then placed on the floor of the inguinal canal. Keyhole was cut. The inferior edge was tacked starting at the symphysis pubis and running along the inguinal ligament. The keyhole then was closed around the spermatic cord as well. The OptiFix was then used to tack the mesh down to the floor of the inguinal canal. The area was irrigated. Cord was returned to normal anatomic position. The aponeurosis was reapproximated with running 2-0 Vicryl. Alyssa's was approximated with a running 3-0 Vicryl as well and then the skin was closed using cleve. Needle, sponge, and instrument counts were reported as correct. The patient was taken to recovery room in good condition. /[id number] /MODL
== END 2018-10-21 12:15 | disposition home or self-care (01) ==
LOC: FB.SDS 06:31
PROVIDERS: ATTEND Surgery
DX: K40.90 Unilateral inguinal hernia, without obstruction or gangrene, not specified as recurrent (principal); K42.9 Umbilical hernia without obstruction or gangrene; I10 Essential (primary) hypertension; J44.9 Chronic obstructive pulmonary disease, unspecified; J45.40 Moderate persistent asthma, uncomplicated; Z98.890 Other specified postprocedural states; Z87.891 Personal history of nicotine dependence; Z79.82 Long term (current) use of aspirin; Z79.899 Other long term (current) drug therapy
CPT/HCPCS: 00832; 49505; C1713; C1781; J0690; J1100; J2001; J2370; J2405; J2704; J3010; J3490; J7120

== ENCOUNTER 2018-12-05 15:31 | Observation (INO) | payer MEDICARE, MEDICAID ==
--- NOTE | 2018-12-05 16:08 | EDM.PDOC ---
ED HPI GENERAL MEDICAL PROBLEM - General Chief Complaint: Respiratory Problem Stated Complaint: SOB Time Seen by Provider: 12/05/18 16:08 Source of Information: Reports: Patient, Old Records, Provider History Limitations: Reports: No Limitations - History of Present Illness INITIAL COMMENTS - FREE TEXT/NARRATIVE: Patient is a very pleasant 78-year-old male who was sent over from clinic due to concern for hypoxia, sudden onset. He reports that he has had trouble catching his breath, and it seems to be worse the last 2 or 3 days. He notes he had a short episode of chest pain approximately 2 days ago lasting 2-3 minutes. He always has a cough, is not certain if that worse or not. No fever, chills or sweats. He does not have any nausea or vomiting, no change in bowel habits. He has had a slow weight loss, stating that in clinic he was down to 178 pounds today from 193. He has no lower extremity edema. He has no numbness, weakness or tingling in any of his arms or legs. Resides in shelter attached to the hospital. Remote history of smoking, also reports a history of asthma and an irregular heart rate. Denies a history of any other heart problems. 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 Spoke with clinic provider, she stated that when patient arrived to the clinic he was significantly low on his oxygen saturation, and they tried it on a couple of different machines. They ran basic labs there but are unable to do a full workup so he was sent to the ER for further evaluation. There was concern with the sudden onset of hypoxia that he may have need for a CT scan and there was some additional labs not available at the clinic she felt were important. Generalized Pain Score (Numeric/FACES): 4 - Related Data Allergies Allergy/AdvReac Type Severity Reaction Status Date / Time No Known Allergies Allergy Verified 12/05/18 15:44 Home Meds: Home Meds Albuterol Sulfate [Proair Hfa] 2 puff IH Q4H PRN 05/12/13 [History] Omeprazole [Prilosec] 20 mg PO DAILY 05/12/13 [History] Clopidogrel Bisulfate [Clopidogrel] 75 mg PO DAILY 01/14/14 [History] Aspirin [Halfprin] 81 mg PO DAILY 11/20/17 [History] Bisacodyl [Dulcolax] 10 mg RC Q3D PRN 08/21/18 [History] Citalopram Hydrobromide [Celexa] 15 mg PO DAILY 08/21/18 [History] Isoniazid 300 mg PO DAILY 08/21/18 [History] Loperamide [Imodium AD] 2 mg PO DAILY PRN 08/21/18 [History] Pyridoxine HCl 25 mg PO DAILY 08/21/18 [History] Cholestyramine (With Sugar) [Questran Powder] 4 g PO DAILY PRN 10/20/18 [History ] Acetaminophen/HYDROcodone [[place] 325-5 MG] 1 tab PO Q6H PRN #10 tab 10/21/18 [Rx ] Losartan/Hydrochlorothiazide [Losartan-HCTZ 50-12.5 MG] 1 tab DAILY 12/05/18 [ History] Past Medical History HEENT History: Reports: Cataract Other HEENT History: wears glasses Cardiovascular History: Reports: Arrhythmia, Hypertension, Other (See Below) Other Cardiovascular History: SYMPTOMATIC STENOSIS OF RIGHT CAROTID ARTERY Respiratory History: Reports: Asthma, COPD, TB (latent (positive skin prick)) Other Respiratory History: FORMER SMOKER Gastrointestinal History: Reports: Hiatal Hernia Genitourinary History: Reports: Renal Calculus, Other (See Below) Other Genitourinary History: bloody urine, enlarged left testicle Musculoskeletal History: Reports: Osteoarthritis Other Musculoskeletal History: HX OF PATELLA FX Neurological History: Reports: TIA, Other (See Below) Other Neuro History: DIZZINESS AND GIDDINESS Other Hematologic History: HX OF HEPATITIS C Oncologic (Cancer) History: Reports: Colon - Infectious Disease History Infectious Disease History: Reports: Hepatitis C - Past Surgical History Cardiovascular Surgical History: Reports: Carotid Endarterectomy GI Surgical History: Reports: Colon Musculoskeletal Surgical History: Reports: Arthroscopic Procedure, Shoulder Surgery, Other (See Below) Other Musculoskeletal Surgeries/Procedures:: KNEE SURGERY- LEFT Social & Family History - Family History Family Medical History: Noncontributory - Tobacco Use Smoking Status *Q: Former Smoker - Caffeine Use Caffeine Use: Reports: Coffee, Soda - Living Situation & Occupation Living situation: Reports: Occupation: Retired ED ROS GENERAL - Review of Systems Review Of Systems: See Below Constitutional: Denies: Fever, Chills, Diaphoresis HEENT: Reports: No Symptoms Respiratory: Reports: Shortness of Breath, Cough, Sputum. Denies: Wheezing Cardiovascular: Reports: Dyspnea on Exertion. Denies: Chest Pain, Palpitations , Syncope Endocrine: Reports: No Symptoms GI/Abdominal: Denies: Abdominal Pain, Constipation, Diarrhea, Nausea, Vomiting : Denies: Dysuria, Flank Pain, Frequency, Urgency Musculoskeletal: Reports: No Symptoms Skin: Reports: No Symptoms Neurological: Denies: Confusion, Headache, Numbness, Tingling, Weakness Psychiatric: Reports: No Symptoms Hematologic/Lymphatic: Denies: Easy Bleeding Immunologic: Reports: No Symptoms ED EXAM, GENERAL - Physical Exam Exam: See Below Free Text/Narrative:: Gen.: Alert, very pleasant no acute distress. Head is atraumatic. Pupils are equal and reactive and facial muscles are symmetric. Throat is without erythema , mucous members are moist. Neck is supple and there is no cervical lymphadenopathy. Heart is regular rate and rhythm, lungs are clear in the upper muller and decreased sounds in the bases, questionable basilar crackles more prominent on left side. Abdomen is positive bowel sounds, soft nondistended nontender. Peripheral pulses are +2 in both the upper and lower extremities and he has no lower extremity edema. No skin rashes or lesions are noted on limited exam. Muscular strength is equal bilaterally in both the upper and lower extremities. Course - Vital Signs Text/Narrative:: Discussed case with clinic provider, very much appreciate. Review labs available from clinic, normal white count. BMP not available and BNP is a send out for them. We will get a troponin, CMP and BNP here, as well as a CRP. Chest x-ray is being pushed on PACS. EKG shows normal sinus rhythm with first-degree heart block and no morphology changes. Upon arrival here his pulse ox is 91% and no desaturations have been noted. Last Recorded V/S: Last Vital Signs Temp 36.6 C 12/05/18 23:24 Pulse 96 12/05/18 23:24 Resp 18 12/05/18 23:24 BP 130/70 12/05/18 23:24 Pulse Ox 91 L 12/05/18 23:24 - Orders/Labs/Meds Orders: Active Orders 24 hr Category Date Time Status Ang Chest [CT] Stat Exams 12/05/18 18:24 Taken Medication Orders Calcium Carbonate/Glycine (Tums) 500 mg PO Q4H PRN PRN Reason: Dyspepsia Sodium Chloride (Normal Saline) 1,000 mls @ 100 mls/hr IV ASDIRECTED KAYLA Last Admin: 12/05/18 20:23 Dose: 100 mls/hr Prednisone (Prednisone) 40 mg PO WITHBREAKFAST KAYLA Labs: Laboratory Tests 12/05/18 12/05/18 Range/Units 17:00 17:00 Sodium 127 L D (135-145) mmol/L Potassium 4.3 (3.5-5.3) mmol/L Chloride 92 L D (100-110) mmol/L Carbon Dioxide 25 (21-32) mmol/L BUN 14 (7-18) mg/dL Creatinine 1.3 (0.70-1.30) mg/dL Est Cr Clr Drug Dosing 40.90 mL/min Estimated GFR (MDRD) 53 L (>60) BUN/Creatinine Ratio 10.8 (9-20) Glucose 118 H (80-116) mg/dL Calcium 9.5 (8.6-10.2) mg/dL Total Bilirubin 0.7 (0.1-1.3) mg/dL AST 21 (5-25) IU/L ALT 28 (12-36) U/L Alkaline Phosphatase 107 (56-112) IU/L Troponin I < 0.017 L (<0.017-0.056) ng/mL C-Reactive Protein 1.3 H (0.5-0.9) mg/dL NT-Pro-B Natriuret Pep 458 H (<=450) pg/mL Total Protein 7.6 (6.0-8.0) g/dL Albumin 3.6 (3.2-4.6) g/dL Globulin 4.0 g/dL Albumin/Globulin Ratio 0.9 Meds: Medications Generic Name Dose Route Start Last Admin Trade Name Freq PRN Reason Stop Dose Admin Calcium Carbonate/Glycine 500 mg 12/05/18 19:53 Tums PO Q4H PRN Dyspepsia Sodium Chloride 1,000 mls @ 100 mls/hr 12/05/18 20:00 12/05/18 20:23 Normal Saline IV 100 mls/hr ASDIRECTED KAYLA Administration Prednisone 40 mg 12/06/18 08:00 Prednisone PO WITHBREAKFAST KAYLA Discontinued Medications Generic Name Dose Route Start Last Admin Trade Name Freq PRN Reason Stop Dose Admin Albuterol/Ipratropium 3 ml 12/05/18 19:56 12/05/18 20:27 Duoneb 3.0-0.5 Mg/3 Ml NEB 12/05/18 19:57 3 ml ONETIME ONE Administration Iopamidol 75 ml 12/05/18 18:35 12/05/18 19:09 Isovue-370 (76%) IV 12/05/18 18:36 75 ml ONETIME ONE Administration Prednisone 60 mg 12/06/18 19:58 Prednisone PO 12/06/18 19:59 ONETIME ONE Prednisone 60 mg 12/05/18 20:55 12/05/18 21:02 Prednisone PO 12/05/18 20:56 60 mg ONETIME ONE Administration - Re-Assessments/Exams Free Text/Narrative Re-Assessment/Exam: 12/06/18 chemistry panel shows negative troponin, creatinine 1.3, normal LFTs. Hyponatremia of 127, appears to be new. Cl low as well. CRP mildly elevated. CBC normal from clinic. BNP also basically normal. nursing walked patient around the department and desatted to 84%. Minimal symptoms. CXR reviewed - new markings in lung muller, not quite consistent with pulmonary edema, no obvious infiltrate. Discussed with radiology, who reviewed film and states looks like new onset pulmonary fibrosis. Recommended CT. Unlikely to be PE given anticoagulation (plavix, ASA) and no obvious source, but creatinine ok for dye load. discussed with family and patient admission for new onset pulmonary symptoms, hyponatremia, hypoxia on exertion. They are all in agreement. Free Text/Narrative Re-Assessment/Exam: 12/06/[address] results with radiology -- extensive infiltrate consistent with pulmonary fibrosis, could also have exacerbation of lobar emphysema. No PE and no clear signs of pneumonia. Will need workup for this but I do not think its necessary to transfer to [facility]. will admit observation confirmed DNR status, in event of respiratory compromise patient would like intubation considered at this time. Son is POA. gentle IVF (100ml/hr) overnight. No signs of heart failure at this time given possible exacerbation of emphysema, 60mg prednisone dose ordered tonight, with 40mg daily starting in AM duonebs ordered tonight and PRN. May benefit from scheduled for a few days to see if affects hypoxia. no indication for antibiotics oxygen PRN, if requiring at rest stop fluids hold diuretics (no home meds ordered on admission) repeat BMP in am workup needed for new-onset pulmonary fibrosis - may be able to complete outpatient. Dr Hernandez to assume care in AM Departure - Departure Time of Disposition: 18:00 Disposition: Refer to Observation Condition: Fair Clinical Impression: Hyponatremia, Pulmonary fibrosis, Palliative care status, Latent tuberculosis, Hypoxemia - Discharge Information *PRESCRIPTION DRUG MONITORING PROGRAM REVIEWED*: Not Applicable *COPY OF PRESCRIPTION DRUG MONITORING REPORT IN PATIENT ELLA: Not Applicable - My Orders Last 24 Hours: My Active Orders 12/05/18 18:24 Ang Chest [CT] Stat - Assessment/Plan Last 24 Hours: My Active Orders 12/05/18 18:24 Ang Chest [CT] Stat
[2018-12-05] MEDS ORDERED: Iopamidol 755 Mg/ML 75 ML Bottle IV ONE (18:35)
[2018-12-05] MEDS ORDERED: Calcium Carbonate 500 MG Tab.Chew PO PRN (19:53)
[2018-12-05] MEDS ORDERED: Albuterol/Ipratropium 3.0-0.5 MG/3 ML Neb Soln NEB ONE (19:56)
[2018-12-05] MEDS: Sodium Chloride 0.9% 1,000 ML IV SCH (20:23)
[2018-12-05] MEDS ORDERED: predniSONE 20 MG Tab PO ONE (20:55)
[2018-12-06] MEDS: Sodium Chloride 0.9% 1,000 ML IV SCH (05:50)
[2018-12-06] MEDS ORDERED: predniSONE 20 MG Tab PO SCH (08:00)
[2018-12-06 08:50] VITALS: BP 120/70; PULSE 70
--- NOTE | 2018-12-06 08:58 | PCM.HP.2 ---
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 Says had a dry cough for long time but that has gotten a little worse. He denies wheezing. He does have a history of asthma and COPD. Chest x-ray was done in the clinic and it looked abnormal and she sent the patient to the ER to be evaluated possible CT. The ER doctor evaluated the patient with a CT. He was hypoxic both in the clinic with sats in the 80s in the ER. CT scan shows COPD and increasing fibrosis. He was admitted overnight for observation. He was started on steroids. Patient denies runny nose , congestion, ear pain, fevers, chills or chest pain. He denies leg swelling. Generalized Pain Score (Numeric/FACES): 4 - Related Data Allergies/Adverse Reactions: Allergies Allergy/AdvReac Type Severity Reaction Status Date / Time No Known Allergies Allergy Verified 12/05/18 15:44 Home Medications: Home Meds Albuterol Sulfate [Proair Hfa] 2 puff IH Q4H PRN 05/12/13 [History] Omeprazole [Prilosec] 20 mg PO DAILY 05/12/13 [History] Clopidogrel Bisulfate [Clopidogrel] 75 mg PO DAILY 01/14/14 [History] Aspirin [Halfprin] 81 mg PO DAILY 11/20/17 [History] Bisacodyl [Dulcolax] 10 mg RC Q3D PRN 08/21/18 [History] Citalopram Hydrobromide [Celexa] 15 mg PO DAILY 08/21/18 [History] Isoniazid 300 mg PO DAILY 08/21/18 [History] Loperamide [Imodium AD] 2 mg PO DAILY PRN 08/21/18 [History] Pyridoxine HCl 25 mg PO DAILY 08/21/18 [History] Cholestyramine (With Sugar) [Questran Powder] 4 g PO DAILY PRN 10/20/18 [History ] Acetaminophen/HYDROcodone [[place] 325-5 MG] 1 tab PO Q6H PRN #10 tab 10/21/18 [Rx ] Losartan/Hydrochlorothiazide [Losartan-HCTZ 50-12.5 MG] 1 tab DAILY 12/05/18 [ History] Past Medical History HEENT History: Reports: Cataract Other HEENT History: wears glasses Cardiovascular History: Reports: Arrhythmia, Hypertension, Other (See Below) Other Cardiovascular History: SYMPTOMATIC STENOSIS OF RIGHT CAROTID ARTERY Respiratory History: Reports: Asthma, COPD, TB (latent (positive skin prick)) Other Respiratory History: FORMER SMOKER Gastrointestinal History: Reports: Hiatal Hernia Other Gastrointestinal History: hx Hepatitis C Genitourinary History: Reports: Renal Calculus, Other (See Below) Other Genitourinary History: bloody urine, enlarged left testicle Musculoskeletal History: Reports: Osteoarthritis Other Musculoskeletal History: HX OF PATELLA FX Neurological History: Reports: TIA, Other (See Below) Other Neuro History: DIZZINESS AND GIDDINESS Other Hematologic History: HX OF HEPATITIS C Oncologic (Cancer) History: Reports: Colon - Infectious Disease History Infectious Disease History: Reports: Hepatitis C - Past Surgical History Cardiovascular Surgical History: Reports: Carotid Endarterectomy GI Surgical History: Reports: Colon Musculoskeletal Surgical History: Reports: Arthroscopic Procedure, Shoulder Surgery, Other (See Below) Other Musculoskeletal Surgeries/Procedures:: KNEE SURGERY- LEFT Social & Family History - Family History Family Medical History: Noncontributory - Tobacco Use Smoking Status *Q: Former Smoker Years of Tobacco use: 20 Packs/Tins Daily: 1 Used Tobacco, but Quit: Yes Month/Year Tobacco Last Used: Second Hand Smoke Exposure: No - Caffeine Use Caffeine Use: Reports: Coffee, Soda Other Caffeine Use: 1 cup a day - Recreational Drug Use Recreational Drug Use: No - Living Situation & Occupation Living situation: Reports: Occupation: Retired H&P Review of Systems - Review of Systems: Review Of Systems: See Below General: Reports: No Symptoms HEENT: Reports: No Symptoms Pulmonary: Reports: Shortness of Breath, Cough. Denies: Wheezing, Pleuritic Chest Pain, Sputum, Hemoptysis Cardiovascular: Reports: No Symptoms Gastrointestinal: Reports: No Symptoms Genitourinary: Reports: No Symptoms Musculoskeletal: Reports: No Symptoms Skin: Reports: No Symptoms Psychiatric: Reports: No Symptoms Neurological: Reports: No Symptoms Hematologic/Lymphatic: Reports: No Symptoms Immunologic: Reports: No Symptoms Exam - Exam Exam: See Below - Vital Signs Vital Signs: Last Vital Signs Temp 97.7 F 12/06/18 08:00 Pulse 70 12/06/18 08:00 Resp 20 12/06/18 08:00 BP 120/70 12/06/18 08:00 Pulse Ox 93 L 12/06/18 08:00 Weight: 183 lb - Exam General: Alert, Oriented, Cooperative HEENT: Hearing Intact, Posterior Pharynx Clear, TMs Clear Neck: Supple, Trachea Midline. No: Lymphadenopathy Lungs: Clear to Auscultation, Normal Respiratory Effort, Decreased Breath Sounds. No: Crackles, Rales, Rhonchi Cardiovascular: Regular Rate, Regular Rhythm. No: Systolic Murmur GI/Abdominal Exam: Normal Bowel Sounds, Soft, Non-Tender, No Organomegaly, No Distention Extremities: Normal Inspection, Non-Tender, No Pedal Edema Skin: Warm, Dry, Intact Neurological: Normal Speech, Normal Tone Neuro Extensive - Mental Status: Alert, Oriented x3, Normal Mood/Affect, Normal Cognition Psychiatric: Alert, Normal Affect, Normal Mood - Patient Data Lab Results Last 24 hrs: Laboratory Results - last 24 hr 12/05/18 12/05/18 12/06/18 Range/Units 17:00 17:00 06:05 Sodium 127 L D 129 L (135-145) mmol/L Potassium 4.3 4.8 (3.5-5.3) mmol/L Chloride 92 L D 97 L D (100-110) mmol/L Carbon Dioxide 25 24 (21-32) mmol/L BUN 14 13 (7-18) mg/dL Creatinine 1.3 1.2 (0.70-1.30) mg/dL Est Cr Clr Drug Dosing 40.90 47.50 mL/min Estimated GFR (MDRD) 53 L 58 L (>60) BUN/Creatinine Ratio 10.8 10.8 (9-20) Glucose 118 H 181 H (80-116) mg/dL Calcium 9.5 9.2 (8.6-10.2) mg/dL Total Bilirubin 0.7 (0.1-1.3) mg/dL AST 21 (5-25) IU/L ALT 28 (12-36) U/L Alkaline Phosphatase 107 (56-112) IU/L Troponin I < 0.017 L (<0.017-0.056) ng/mL C-Reactive Protein 1.3 H (0.5-0.9) mg/dL NT-Pro-B Natriuret Pep 458 H (<=450) pg/mL Total Protein 7.6 (6.0-8.0) g/dL Albumin 3.6 (3.2-4.6) g/dL Globulin 4.0 g/dL Albumin/Globulin Ratio 0.9 Result Diagrams: 12/06/18 06:05 - Problem List (1) Latent tuberculosis SNOMED Code(s): 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 ICD Code: R76.11 - NONSPECIFIC REACTION TO SKIN TEST W/O ACTIVE TUBERCULOSIS Status: Acute Current Visit: Yes (2) Hyponatremia SNOMED Code(s): 05539150 ICD Code: E87.1 - HYPO-OSMOLALITY AND HYPONATREMIA Status: Acute Current Visit: Yes (3) COPD (chronic obstructive pulmonary disease) SNOMED Code(s): 79277889 ICD Code: J44.9 - CHRONIC OBSTRUCTIVE PULMONARY DISEASE, UNSPECIFIED Status : Acute Current Visit: No Problem List Initiated/Reviewed/Updated: Yes Orders Last 24hrs: Active Orders 24 hr Category Date Time Status Patient Status [ADT] Routine ADT 12/05/18 19:53 Active Antiembolic Devices [RC] .Routine Care 12/05/18 19:54 Active Pulse Oximetry [RC] PRN Care 12/05/18 19:53 Active RT Aerosol Therapy [RC] ASDIRECTED Care 12/05/18 19:56 Active Up With Assistance [RC] ASDIRECTED Care 12/05/18 19:53 Active VTE/DVT Education [RC] Click to Edit Care 12/05/18 19:54 Active Vital Signs [RC] 0000,0800,1600 Care 12/05/18 19:53 Active Regular Diet [DIET] Diet 12/06/18 Breakfast Active Ang Chest [CT] Stat Exams 12/05/18 18:24 Taken Calcium Carbonate [Tums] Med 12/05/18 19:53 Active 500 mg PO Q4H PRN Sodium Chloride 0.9% [Normal Saline] 1,000 ml Med 12/05/18 20:00 Active IV ASDIRECTED predniSONE Med 12/06/18 08:00 Active 40 mg PO WITHBREAKFAST DVT/VTE Prophylaxis Reflex [OM.PC] Per Unit Routine Oth 12/05/18 19:53 Ordered Resuscitation Status Routine Resus Stat 12/05/18 19:53 Ordered Medication Orders Calcium Carbonate/Glycine (Tums) 500 mg PO Q4H PRN PRN Reason: Dyspepsia Sodium Chloride (Normal Saline) 1,000 mls @ 100 mls/hr IV ASDIRECTED [facility] Last Admin: 12/06/18 05:50 Dose: 100 mls/hr Infusion: 12/06/18 05:50 Dose: 100 mls/hr Admin: 12/05/18 20:23 Dose: 100 mls/hr Prednisone (Prednisone) 40 mg PO WITHBREAKFAST [facility] Last Admin: 12/06/18 07:56 Dose: 40 mg Assessment/Plan Comment:: 1. Admit to observation to correct sodium, steroids and O2. 2. Start inhale aeration therapy 3. Regular diet 4. Up with assist 5. Labs reviewed per ER. CT report was verbally given to me by the ER doctor who was verbally given to her. 6. VTE prophylaxis with Lovenox 7. Restart regular medications.
[2018-12-06] MEDS ORDERED: Albuterol 8 GM Inhaler*PT OWN MED INH PRN (09:01)
[2018-12-06] MEDS ORDERED: Bisacodyl 10 MG Supp RECTAL PRN (09:01)
[2018-12-06] MEDS ORDERED: Non-Formulary Medication 1 Each (Loperamide [Imodium Ad] 2 MG) PO PRN (09:01)
[2018-12-06] MEDS ORDERED: Acetaminophen/HYDROcodone 325-5 MG Tab PO PRN (09:01)
[2018-12-06] MEDS ORDERED: [UNRECOGNIZED DRUG - OTHER] PO PRN (09:01)
[2018-12-06] MEDS ORDERED: CHOLESTYRAMINE 4 GM PO PRN (09:01)
[2018-12-06] MEDS ORDERED: Losartan 50 MG Tab PO SCH (09:15)
--- NOTE | 2018-12-06 11:07 | PCM.DCSUM1 ---
Discharge Summary - Hospital Course Free Text/Narrative:: Hospital course-patient was admitted for hyponatremia little bit of normal saline for fluids for the admitting doctor. CT report was called to the ER doctor reported to me that was fibrosis, COPD and no PE CHF or pneumonia. Patient was put on prednisone oxygen and by the morning he was doing well. Sodium went from 18/05/28. He felt that he could go home disease back in the residential. Will send him back home with prednisone, Spiriva, fluid restriction and I stopped his HTCZ. Start oxygen to keep sats greater than 90%. We'll discharge him will be for 1 week and will check a BMP and stop the fluid restriction. 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 Says had a dry cough for long time but that has gotten a little worse. He denies wheezing. He does have a history of asthma and COPD. Chest x-ray was done in the clinic and it looked abnormal and she sent the patient to the ER to be evaluated possible CT. The ER doctor evaluated the patient with a CT. He was hypoxic both in the clinic with sats in the 80s in the ER. CT scan shows COPD and increasing fibrosis. He was admitted overnight for observation. He was started on steroids. Patient denies runny nose , congestion, ear pain, fevers, chills or chest pain. He denies leg swelling. Diagnosis: Stroke: No - Discharge Data Discharge Date: 12/06/18 Discharge Disposition: DC/Tfer to [facility] Condition: Good - Discharge Diagnosis/Problem(s) (1) Latent tuberculosis SNOMED Code(s): 79417412 ICD Code: R76.11 - NONSPECIFIC REACTION TO SKIN TEST W/O ACTIVE TUBERCULOSIS Status: Acute Current Visit: Yes (2) Hyponatremia SNOMED Code(s): 97142828 ICD Code: E87.1 - HYPO-OSMOLALITY AND HYPONATREMIA Status: Acute Current Visit: Yes (3) COPD (chronic obstructive pulmonary disease) SNOMED Code(s): 05280745 ICD Code: J44.9 - CHRONIC OBSTRUCTIVE PULMONARY DISEASE, UNSPECIFIED Status : Acute Current Visit: No - Patient Instructions Diet: Regular Diet as Tolerated Fluid Restriction: 1500 mL Activity: As Tolerated Activity, Other: With walker Driving: Do Not Drive Showering/Bathing: May Shower Other/Special Instructions: 1. O2 to keep sats greater than 90%. 2. Fluid restriction of 1500 mL for 1 week then DC. In 1 week check a BMP. - Discharge Plan *PRESCRIPTION DRUG MONITORING PROGRAM REVIEWED*: Not Applicable *COPY OF PRESCRIPTION DRUG MONITORING REPORT IN PATIENT ELLA: Not Applicable Prescriptions/Med Rec: Losartan [Cozaar] 50 mg PO DAILY #30 tablet predniSONE [Prednisone] 10 mg PO DAILY #42 tablet Tiotropium [Spiriva HandiHaler] 18 mcg .XX DAILY #30 cap Home Medications: Home Meds Albuterol Sulfate [Proair Hfa] 2 puff IH Q4H PRN 05/12/13 [History] Omeprazole [Prilosec] 20 mg PO DAILY 05/12/13 [History] Clopidogrel Bisulfate [Clopidogrel] 75 mg PO DAILY 01/14/14 [History] Aspirin [Halfprin] 81 mg PO DAILY 11/20/17 [History] Bisacodyl [Dulcolax] 10 mg RC Q3D PRN 08/21/18 [History] Citalopram Hydrobromide [Celexa] 15 mg PO DAILY 08/21/18 [History] Isoniazid 300 mg PO DAILY 08/21/18 [History] Loperamide [Imodium AD] 2 mg PO DAILY PRN 08/21/18 [History] Pyridoxine HCl 25 mg PO DAILY 08/21/18 [History] Cholestyramine (With Sugar) [Questran Powder] 4 g PO DAILY PRN 10/20/18 [History ] Acetaminophen/HYDROcodone [[place] 325-5 MG] 1 tab PO Q6H PRN #10 tab 10/21/18 [Rx ] Losartan [Cozaar] 50 mg PO DAILY #30 tablet 12/06/18 [Rx] Tiotropium [Spiriva HandiHaler] 18 mcg .XX DAILY #30 cap 12/06/18 [Rx] predniSONE [Prednisone] 10 mg PO DAILY #42 tablet 12/06/18 [Rx] Forms: ED Department Discharge Referrals: Jg Nash MD [Primary Care Provider] - - Discharge Summary/Plan Comment DC Time >30 min.: No - Patient Data Vitals - Most Recent: Last Vital Signs Temp 97.7 F 12/06/18 08:00 Pulse 70 12/06/18 08:00 Resp 20 12/06/18 08:00 BP 120/70 12/06/18 09:36 Pulse Ox 93 L 12/06/18 08:00 Weight - Most Recent: 183 lb I&O - Last 24 hours: Intake & Output 12/05/18 12/06/18 12/06/18 22:59 06:59 14:59 Intake Total 138 1068 Output Total 1450 Balance 138 -382 Lab Results - Last 24 hrs: Laboratory Results - last 24 hr 12/05/18 12/05/18 12/06/18 Range/Units 17:00 17:00 06:05 Sodium 127 L D 129 L (135-145) mmol/L Potassium 4.3 4.8 (3.5-5.3) mmol/L Chloride 92 L D 97 L D (100-110) mmol/L Carbon Dioxide 25 24 (21-32) mmol/L BUN 14 13 (7-18) mg/dL Creatinine 1.3 1.2 (0.70-1.30) mg/dL Est Cr Clr Drug Dosing 40.90 47.50 mL/min Estimated GFR (MDRD) 53 L 58 L (>60) BUN/Creatinine Ratio 10.8 10.8 (9-20) Glucose 118 H 181 H (80-116) mg/dL Calcium 9.5 9.2 (8.6-10.2) mg/dL Total Bilirubin 0.7 (0.1-1.3) mg/dL AST 21 (5-25) IU/L ALT 28 (12-36) U/L Alkaline Phosphatase 107 (56-112) IU/L Troponin I < 0.017 L (<0.017-0.056) ng/mL C-Reactive Protein 1.3 H (0.5-0.9) mg/dL NT-Pro-B Natriuret Pep 458 H (<=450) pg/mL Total Protein 7.6 (6.0-8.0) g/dL Albumin 3.6 (3.2-4.6) g/dL Globulin 4.0 g/dL Albumin/Globulin Ratio 0.9 Med Orders - Current: Current Medications Hydrocodone Bitart/Acetaminophen ([place] 325-5 Mg) 1 tab PO Q6H PRN PRN Reason: Pain Albuterol (Ventolin Hfa) 0 gm INH Q4H PRN PRN Reason: Shortness of Breath Aspirin (Halfprin) 81 mg PO DAILY [facility] Bisacodyl (Dulcolax) 10 mg RECTAL Q3D PRN PRN Reason: Constipation Calcium Carbonate/Glycine (Tums) 500 mg PO Q4H PRN PRN Reason: Dyspepsia Clopidogrel Bisulfate (Plavix) 75 mg PO DAILY [facility] Enoxaparin Sodium (Lovenox) 30 mg SUBCUT Q24H [facility] Sodium Chloride (Normal Saline) 1,000 mls @ 100 mls/hr IV ASDIRECTED [facility] Last Admin: 12/06/18 05:50 Dose: 100 mls/hr Isoniazid (Isoniazid) 300 mg PO DAILY [facility] Losartan Potassium (Cozaar) 50 mg PO DAILY [facility] Last Admin: 12/06/18 09:36 Dose: 50 mg Non-Formulary Medication (Cholestyramine (With Sugar) [Questran Powder]) 4 g PO DAILY PRN PRN Reason: Diarrhea Non-Formulary Medication (Loperamide [Imodium Ad]) 2 mg PO DAILY PRN PRN Reason: Loose Stools (Omeprazole [ Prilosec] 20 Mg)*Pt Own Med* 20 mg PO DAILY [facility] (Pyridoxine Hcl [ Pyridoxine Hcl] 25 Mg)*Pt Own Med* 25 mg PO DAILY [facility] Prednisone (Prednisone) 60 mg PO WITHBREAKFAST [facility] Discontinued Medications Albuterol/Ipratropium (Duoneb 3.0-0.5 Mg/3 Ml) 3 ml NEB ONETIME ONE Stop: 12/05/18 19:57 Last Admin: 12/05/18 20:27 Dose: 3 ml Iopamidol (Isovue-370 (76%)) 75 ml IV ONETIME ONE Stop: 12/05/18 18:36 Last Admin: 12/05/18 19:09 Dose: 75 ml Non-Formulary Medication (Losartan/Hydrochlorothiazide [Losartan-Hctz 50-12.5 Mg ]) 1 tab PO DAILY [facility] Prednisone (Prednisone) 60 mg PO ONETIME ONE Stop: 12/06/18 19:59 Prednisone (Prednisone) 60 mg PO ONETIME ONE Stop: 12/05/18 20:56 Last Admin: 12/05/18 21:02 Dose: 60 mg Prednisone (Prednisone) 40 mg PO WITHBREAKFAST [facility] Last Admin: 12/06/18 07:56 Dose: 40 mg
[2018-12-06] MEDS ORDERED: predniSONE 20 MG Tab PO ONE (19:58)
[2018-12-06] MEDS ORDERED: Enoxaparin 30 MG/0.3 ML Syringe SUBCUT SCH (21:00)
[2018-12-07] MEDS ORDERED: predniSONE 20 MG Tab PO SCH (08:00)
[2018-12-07] MEDS ORDERED: Non-Formulary Medication 1 Each (Losartan/Hydrochlorothiazide [Losartan-Hctz 50-12.5 Mg] 1 PO SCH (09:00)
[2018-12-07] MEDS ORDERED: Aspirin 81 MG Tab.EC*PT OWN MED PO SCH (09:00)
[2018-12-07] MEDS ORDERED: ISONIAZID 300 MG PO SCH (09:00)
[2018-12-07] MEDS ORDERED: Clopidogrel 75 MG Tab*PT OWN MED PO SCH (09:00)
[2018-12-07] MEDS ORDERED: PYRIDOXINE HCL 25 MG PO SCH (09:00)
--- NOTE | 2018-12-08 10:26 | CT ---
INDICATION: New hypoxia, question PE. COMPUTERIZED TOMOGRAPHY ANGIOGRAPHY OF THE CHEST WITH CONTRAST: Spiral 1.25 mm axial sections were obtained through the chest with 75 mL Isovue 370 at 3 mL/ second, with sagittal and coronal reconstructions, 12/05/18, and compared with 11/20/17. Total exam DLP = 445.90 mGy-cm. The heart is enlarged. No pericardial effusion was seen. Coronary artery calcifications are noted. Aortic calcifications are minimal. Mediastinal lymphadenopathy is mild to moderate, as previously, with a few significantly enlarged nodes. These may be post inflammatory. They are not specific, however. No mediastinal mass was identified. No definite evidence of pulmonary emboli could be identified, although concentration of contrast in the pulmonary arteries is less than ideal. There are extensive subpleural areas of heavy markings - infiltration, which have apparently progressed significantly, compared with the previous study of a year ago. Multiple abnormal air collections were also noted - numerous blebs scattered throughout the lungs, subpleural in location, which are also progressive, compared with the previous examination. There is also an overall ground glass appearance of the lungs, which may be on the basis of exacerbation and/or progression of lobar emphysema. Superimposed areas of pneumonia cannot be excluded. The upper abdomen included on the study showed suggestion of a small fixed hiatal hernia, some additional minimal calcifications in the aorta, calcifications in the splenic artery, mild renal cortical scarring, and normal appearing adrenal glands. The gallbladder was contracted. IMPRESSION: Findings are felt to be most compatible with progressive lobar emphysema and progressive pulmonary fibrosis with tiny blebs scattered about the subpleural lung bilaterally, progressively more numerous than on the previous study. Report was called to Dr. Johnson at 1930 hours on 12/05/18. [facility]
== END 2018-12-06 11:35 ==
LOC: FB.ED 15:31 → FB.MS 18:57
PROVIDERS: ADMIT Family Medicine; ATTEND Family Medicine
DX: J44.9 Chronic obstructive pulmonary disease, unspecified (principal); E87.1 Hypo-osmolality and hyponatremia; R76.11 Nonspecific reaction to tuberculin skin test without active tuberculosis; R09.02 Hypoxemia; I10 Essential (primary) hypertension; M19.90 Unspecified osteoarthritis, unspecified site; Z87.891 Personal history of nicotine dependence; Z79.899 Other long term (current) drug therapy; Z79.02 Long term (current) use of antithrombotics/antiplatelets; Z79.82 Long term (current) use of aspirin
CPT/HCPCS: 36415; 71275; 80048; 80053; 83880; 84484; 86140; 94640; 96360; 96361; 99285; A9270; G0378; J7030; Q9967; 93010; 99217; 99218; J7620-GY

== ENCOUNTER → 2019-03-12 | Outpatient (CLI) | payer MEDICARE, MEDICAID | LOC: FB.CLBR 08:00 | PROVIDERS: ATTEND Nurse Practitioner Family | DX: M25.562 Pain in left knee (principal) | CPT/HCPCS: 99213 ==

== ENCOUNTER 2019-05-11 10:22 | Day surgery (SDC) | payer MEDICARE, MEDICAID ==
[~2019-05-11 10:22] MED LIST: Sodium Chloride 0.9% 10 ML Syringe FLUSH PRN
[2019-05-11] MEDS ORDERED: Lidocaine 1% PF 2 ML SDV INJECT ONE (10:23)
[2019-05-11] MEDS ORDERED: Propofol 200 MG/20 ML SDV IV ONE (10:23)
[2019-05-11] MEDS ORDERED: fentaNYL 100 MCG/2 ML SDV IV ONE (10:23)
[2019-05-11] MEDS ORDERED: ePHEDrine 50 MG/ML SDV IV ONE (10:23)
[2019-05-11] MEDS ORDERED: Phenylephrine 1% 10 MG/ML SDV IV ONE ×2 (10:23)
[2019-05-11] MEDS: Lactated Ringers 1,000 ML IV SCH ×2 (11:10→17:38)
[2019-05-11] MEDS: ceFAZolin 2 GM in Premix Bag 1 BAG IV ONE ×3 (14:36→14:39)
[2019-05-11] MEDS ORDERED: Bupivacaine 0.5% 30 ML SDV INJECT ONE (15:28)
--- NOTE | 2019-05-11 15:39 | PCM.OPNOTE ---
- General Post-Op/Procedure Note Date of Surgery/Procedure: 05/11/19 Operative Procedure(s): removal of hardware left knee Pre Op Diagnosis: painful hardware left knee Post-Op Diagnosis: Same Anesthesia Technique: General LMA Primary Surgeon: Chapincito Bartlett Manufacturing Technician: Swapna Flynn EBL in mLs: 10 Complications: None Condition: Good
[2019-05-11] MEDS ORDERED: Naloxone 0.4 MG/ML SDV IVPUSH PRN (15:54)
[2019-05-11] MEDS ORDERED: diphenhydrAMINE 25 MG Cap PO PRN (15:54)
[2019-05-11] MEDS ORDERED: Docusate Sodium 100 MG Cap PO PRN (15:54)
[2019-05-11] MEDS ORDERED: Magnesium Hydroxide 400 MG/5 ML Susp 30 ML Cup PO PRN (16:22)
[2019-05-11] MEDS ORDERED: Loperamide 2 MG Cap PO PRN (17:15)
--- NOTE | 2019-05-11 18:39 | OR ---
DATE OF OPERATION: 05/11/2019 SURGEON: Chapincito Bartlett DO PREOPERATIVE DIAGNOSIS: Left knee painful hardware. POSTOPERATIVE DIAGNOSIS: Left knee painful hardware. PROCEDURE: Left knee hardware removal. COMPLIANCE PROJECT MANAGER: Swapna Flynn NP. Nurse practitioner, Swapna Flynn NP, played an essential role in assisting in this case, helping to position the patient, retract structures as needed, as well as suturing and cutting sutures as indicated. Her presence improved patient's safety and decreased operative time. ANESTHESIA: Laryngeal mask airway. FLUID: Lactated Ringer's solution. ESTIMATED BLOOD LOSS: Less than 10 mL. COMPLICATIONS: None. SPECIMEN: None. DISCHARGE DISPOSITION: Stable to PACU. INDICATION FOR PROCEDURE: The patient was seen preoperatively in the clinic. Many years ago, he had an open reduction and internal fixation of his patella with severe tricompartmental arthritis. He has since had increasing pain in his left knee. Preoperative imaging confirmed hardware breakage in that area that appeared to be old. Risks and goals of the procedure were explained to the patient and informed consent was obtained. DETAILS OF PROCEDURE: The patient was seen preoperatively by myself and the Anesthesia staff in the preoperative holding area, where the operative site was marked. He was brought to the operative suite by Anesthesia staff where general anesthesia was administered, and the left lower extremity was then prepped and draped in a sterile manner. Time-out was called identifying the correct patient, correct procedure, correct site, and the antibiotics had been begun within appropriate period of time. An incision was made midway between the most proximal hardware and carried down through the fascia to the bone. The lateral hardware was identified first, which was a large pin, which was very mobile. We removed that. I then used fluoroscopy, which was draped sterilely to find the more medial large pin. I could not find this, so I went distally where I felt the pin sticking out. I made an incision there and used Bovie electrocautery to get down to it. I was then able to remove the pin, so I do not think this is contributing to pain, but I did take a rongeur and remove enough bone. We were able to get the pin out proximally. I did then examine the most lateral wire under fluoroscopy. This was not visualized. I did go through a small amount of bone with a rongeur, but given that it was nonmobile and buried, I did not believe this was the source of the pain. We then copiously irrigated with Betadine-infused irrigation and then closed with interrupted 2-0 Vicryl sutures followed by skin cleve followed by Betadine-soaked Adaptic dressing, fluffs, Kerlix, and an ZACHARIAH wrap. The patient was then allowed to awaken from general anesthesia and taken to the PACU in stable condition. /[id number] BS/MARIIAL
--- NOTE | 2019-05-11 19:36 | PCM.HP.2 ---
H&P History of Present Illness - General Date of Service: 05/11/19 Admit Problem/Dx: Admission Diagnosis/Problem Admission Diagnosis/Problem Knee joint operation Source of Information: Patient, Old Records History Limitations: Reports: No Limitations - History of Present Illness Initial Comments - Free Text/Narative: This is a 79-year-old male patient with a history of hypoxia, COPD, essential hypertension had hardware removed from his knee. Hospital medicine was asked to follow along and consult in regards to his chronic medical care. Patient states tonight that he is doing well. He denies any fevers, chills, shortness of breath , cough, chest pain, leg swelling or abdominal pain. His leg she feels better he states. He has no concerns - Related Data Allergies/Adverse Reactions: Allergies Allergy/AdvReac Type Severity Reaction Status Date / Time No Known Allergies Allergy Verified 05/11/19 12:15 Home Medications: Home Meds Albuterol Sulfate [Proair Hfa] 2 puff IH Q4H PRN 05/12/13 [History] Omeprazole [Prilosec] 20 mg PO DAILY 05/12/13 [History] Bisacodyl [Dulcolax] 10 mg RC Q3D PRN 08/21/18 [History] Loperamide [Imodium AD] 2 mg PO ASDIRECTED PRN 08/21/18 [History] Albuterol [Proventil Neb Soln] 2.5 mg NEB BID 05/07/19 [History] Benzonatate [Tessalon Perle] 200 mg PO TID PRN 05/07/19 [History] Umeclidinium Brm/Vilanterol Tr [Anoro Ellipta 62.5-25 MCG] 1 puff INH DAILY [History] guaiFENesin 10 ml PO Q4H PRN 05/07/19 [History] Acetaminophen [Tylenol] 650 mg PO BID 05/11/19 [History] Acetaminophen [Tylenol] 650 mg PO Q4H PRN 05/11/19 [History] Aspirin [Halfprin] 81 mg PO DAILY 05/11/19 [History] Cholestyramine (With Sugar) [Questran Powder] 4 gm PO DAILY@1000 05/11/19 [ History] Citalopram Hydrobromide [Celexa] 20 mg PO DAILY 05/11/19 [History] Eucalyptus/Menthol [Cough Drops] 1 lozenge PO ASDIRECTED PRN 05/11/19 [History] Magnesium Hydroxide [Milk of Magnesia] 30 ml PO DAILY PRN 05/11/19 [History] Oseltamivir [Tamiflu] 75 mg PO DAILY 05/11/19 [History] Sodium Chloride [Saline Nasal [place]] 1 spray INH BID 05/11/19 [History] Past Medical History HEENT History: Reports: Cataract Other HEENT History: wears glasses Cardiovascular History: Reports: Arrhythmia, Hypertension, Other (See Below) Other Cardiovascular History: SYMPTOMATIC STENOSIS OF RIGHT CAROTID ARTERY Respiratory History: Reports: Asthma, COPD, TB Other Respiratory History: FORMER SMOKER Gastrointestinal History: Reports: Hiatal Hernia Other Gastrointestinal History: hx Hepatitis C Genitourinary History: Reports: Renal Calculus, Other (See Below) Other Genitourinary History: bloody urine, enlarged left testicle Musculoskeletal History: Reports: Osteoarthritis Other Musculoskeletal History: HX OF PATELLA FX Neurological History: Reports: TIA, Other (See Below) Other Neuro History: DIZZINESS AND GIDDINESS Psychiatric History: Reports: None Endocrine/Metabolic History: Reports: None Hematologic History: Reports: Other (See Below) Other Hematologic History: HX OF HEPATITIS C Immunologic History: Reports: None Oncologic (Cancer) History: Reports: Colon Dermatologic History: Reports: None - Infectious Disease History Infectious Disease History: Reports: Hepatitis C - Past Surgical History Head Surgeries/Procedures: Reports: None HEENT Surgical History: Reports: None Cardiovascular Surgical History: Reports: Carotid Endarterectomy Respiratory Surgical History: Reports: None GI Surgical History: Reports: Colon Male Surgical History: Reports: None Endocrine Surgical History: Reports: None Neurological Surgical History: Reports: None Musculoskeletal Surgical History: Reports: Arthroscopic Procedure, Shoulder Surgery, Other (See Below) Other Musculoskeletal Surgeries/Procedures:: KNEE SURGERY- LEFT Oncologic Surgical History: Reports: None Dermatological Surgical History: Reports: None Social & Family History - Family History Family Medical History: Noncontributory - Tobacco Use Smoking Status *Q: Former Smoker Years of Tobacco use: 20 Used Tobacco, but Quit: Yes Month/Year Tobacco Last Used: 32 years ago Second Hand Smoke Exposure: No - Caffeine Use Caffeine Use: Reports: Coffee, Soda Other Caffeine Use: 1 cup a day - Recreational Drug Use Recreational Drug Use: No - Living Situation & Occupation Living situation: Reports: Occupation: Retired H&P Review of Systems - Review of Systems: Review Of Systems: See Below General: Reports: No Symptoms HEENT: Reports: No Symptoms Pulmonary: Reports: No Symptoms Cardiovascular: Reports: No Symptoms Gastrointestinal: Reports: No Symptoms Genitourinary: Reports: No Symptoms Musculoskeletal: Reports: Joint Pain Skin: Reports: No Symptoms Psychiatric: Reports: No Symptoms Neurological: Reports: No Symptoms Hematologic/Lymphatic: Reports: No Symptoms Immunologic: Reports: No Symptoms Exam - Exam Exam: See Below - Vital Signs Vital Signs: Last Vital Signs Temp 97.5 F 05/11/19 15:55 Pulse 81 05/11/19 16:32 Resp 19 05/11/19 16:32 BP 164/83 H 05/11/19 16:32 Pulse Ox 83 L 05/11/19 16:32 Weight: 186 lb - Exam General: Alert, Oriented, Cooperative HEENT: Hearing Intact, Mucosa Moist & [place], Posterior Pharynx Clear, TMs Clear Neck: Supple, Trachea Midline. No: Lymphadenopathy Lungs: Clear to Auscultation, Normal Respiratory Effort. No: Crackles, Rales, Rhonchi, Wheezing Cardiovascular: Regular Rate, Regular Rhythm. No: Systolic Murmur, Diastolic Murmur GI/Abdominal Exam: Normal Bowel Sounds, Soft, Non-Tender, No Organomegaly, No Distention Back Exam: Normal Inspection Neurological: Normal Speech, Normal Tone Neuro Extensive - Mental Status: Alert, Oriented x3, Normal Mood/Affect, Normal Cognition, Memory Intact Psychiatric: Alert, Normal Affect, Normal Mood Sepsis Event Note - Evaluation Sepsis Screening Result: No Definite Risk - Focused Exam Vital Signs: Vital Signs Temp Pulse Resp BP Pulse Ox Pulse Ox 05/11/19 16:32 81 19 164/83 H 83 L 05/11/19 16:10 86 20 160/85 H 98 05/11/19 16:04 91 20 162/84 H 96 05/11/19 15:56 95 05/11/19 15:55 97.5 F 80 16 156/101 H 95 95 05/11/19 15:50 91 22 H 162/84 H 96 05/11/19 15:45 98.1 F 89 22 H 166/86 H 96 05/11/19 10:28 97.4 F 81 20 158/98 H 98 Date Exam was Performed: 01/20/20 Time Exam was Performed: 19:33 - Problem List (1) COPD (chronic obstructive pulmonary disease) SNOMED Code(s): 24045480 ICD Code: J44.9 - CHRONIC OBSTRUCTIVE PULMONARY DISEASE, UNSPECIFIED Status : Acute Current Visit: No (2) Carotid stenosis Status: Acute Current Visit: No Qualifiers: (3) Hypertension SNOMED Code(s): 04868724 ICD Code: I10 - ESSENTIAL (PRIMARY) HYPERTENSION Status: Acute Current Visit: No Problem List Initiated/Reviewed/Updated: Yes Orders Last 24hrs: Active Orders 24 hr Category Date Time Status Patient Status [ADT] Routine ADT 05/11/19 10:15 Ordered Patient Status [ADT] Routine ADT 05/11/19 15:55 Active Ambulate [RC] ASDIRECTED Care 05/11/19 15:55 Active Head of Bed Elevation [RC] CONTINUOUS Care 05/11/19 15:55 Active Intake and Output [RC] QSHIFT Care 05/11/19 15:56 Active Notify Provider Consults [RC] ASDIRECTED Care 05/11/19 16:13 Active Oxygen Therapy [RC] PRN Care 05/11/19 15:55 Active Patient to Empty Bladder [RC] ASDIRECTED Care 05/11/19 10:15 Active Pneumonia Education [RC] UPON Care 05/11/19 15:55 Active Pulse Oximetry [RC] CONTINUOUS Care 05/11/19 15:56 Active RT Incentive Spirometry [RC] ASDIRECTED Care 05/11/19 10:15 Active RT Incentive Spirometry [RC] Q1HWA Care 05/11/19 15:55 Active Turn, Cough, Deep Breathe [RC] Q1HWA Care 05/11/19 15:55 Active Up With Assistance [RC] ASDIRECTED Care 05/11/19 15:54 Active Up to Chair [RC] TIDMEALS Care 05/11/19 15:55 Active Verify Patient Consent Obtain [RC] ASDIRECTED Care 05/11/19 10:15 Active Vital Signs [RC] PER UNIT ROUTINE Care 05/11/19 15:55 Active Wound Care [RC] DAILY Care 05/12/19 08:00 Active Consult to Physician [CONS] Routine Cons 05/11/19 15:54 Ordered OT Evaluation and Treatment [CONS] Routine Cons 05/11/19 15:00 Active PT Evaluation and Treatment [CONS] Routine Cons 05/11/19 15:00 Active Respiratory Care Assess and Treatment [CONS] Routine Cons 05/11/19 15:55 Active Clear Liquid Diet [DIET] Diet 05/11/19 Dinner Ordered C-ARM Less 1 Hr [CR] Routine Exams 05/11/19 15:41 Taken Acetaminophen [Tylenol] Med 05/11/19 21:00 Active 650 mg PO BID Acetaminophen/HYDROcodone [[place] 325-10 MG] Med 05/11/19 15:54 Active 1 tab PO Q3H PRN Albuterol [Proventil Neb Soln] Med 05/11/19 21:00 Active 2.5 mg NEB BIDRT Aspirin [Halfprin] Med 05/12/19 09:00 Active 81 mg PO DAILY Citalopram [Celexa] Med 05/12/19 09:00 Active 20 mg PO DAILY Clopidogrel [Plavix] Med 05/12/19 21:00 Active 75 mg PO DAILY Docusate Sodium [Colace] Med 05/11/19 15:54 Active 100 mg PO BID PRN Lactated Ringers [Ringers, Lactated] 1,000 ml Med 05/11/19 10:15 Active IV ASDIRECTED Loperamide [Imodium] Med 05/11/19 17:15 Active 2 mg PO DAILY PRN Losartan [Cozaar] Med 05/12/19 09:00 Active 50 mg PO DAILY Magnesium Hydroxide [Milk of Magnesia] Med 05/11/19 16:22 Active 30 ml PO DAILY PRN Naloxone [Narcan] Med 05/11/19 15:54 Active 0.1 mg IVPUSH ONETIME PRN Omeprazole [Prilosec] Med 05/12/19 09:00 Active 20 mg PO DAILY Oseltamivir [Tamiflu] Med 05/12/19 09:00 Active 75 mg PO DAILY Sodium Chloride 0.9% [Saline Flush] Med 05/11/19 10:15 Active 10 ml FLUSH ASDIRECTED PRN Umeclidinium Brm/Vilanterol Tr Med 05/12/19 09:00 Active 1 puff INH DAILY diphenhydrAMINE [Benadryl] Med 05/11/19 15:54 Active 25 mg PO Q4H PRN Convert IV to Saline Lock [OM.PC] Routine Oth 05/11/19 15:54 Ordered Ice Therapy [OM.PC] Routine Oth 05/11/19 15:54 Ordered Oral Care [OM.PC] Routine Oth 05/11/19 15:54 Ordered Peripheral IV Insertion Adult [OM.PC] Routine Oth 05/11/19 10:15 Ordered Sequential Compression Device [OM.PC] Routine Oth 05/11/19 10:15 Ordered Weight bearing status [OM.PC] Routine Oth 05/11/19 15:54 Ordered Medication Orders Acetaminophen (Tylenol) 650 mg PO BID [facility] Hydrocodone Bitart/Acetaminophen ([place] 325-10 Mg) 1 tab PO Q3H PRN PRN Reason: Pain Albuterol (Proventil Neb Soln) 2.5 mg NEB BIDRT [facility] Aspirin (Halfprin) 81 mg PO DAILY [facility] Citalopram Hydrobromide (Celexa) 20 mg PO DAILY [facility] Clopidogrel Bisulfate (Plavix) 75 mg PO DAILY [facility] Diphenhydramine HCl (Benadryl) 25 mg PO Q4H PRN PRN Reason: Insomnia Docusate Sodium (Colace) 100 mg PO BID PRN PRN Reason: Constipation Lactated Ringer's (Ringers, Lactated) 1,000 mls @ 125 mls/hr IV ASDIRECTED KAYLA Last Admin: 05/11/19 17:38 Dose: 125 mls/hr Infusion: 05/11/19 17:38 Dose: 125 mls/hr Admin: 05/11/19 11:10 Dose: 125 mls/hr Loperamide HCl (Imodium) 2 mg PO DAILY PRN PRN Reason: LOOSE STOOLS Losartan Potassium (Cozaar) 50 mg PO DAILY [facility] Magnesium Hydroxide (Milk Of Magnesia) 30 ml PO DAILY PRN PRN Reason: Constipation Naloxone HCl (Narcan) 0.1 mg IVPUSH ONETIME PRN PRN Reason: Oversedation (Omeprazole [ Prilosec] 20 Mg) * Ptom 20 mg PO DAILY [facility] Incruse Ellipta * (Ptom) 1 puff INH DAILY [facility] Oseltamivir Phosphate (Tamiflu) 75 mg PO DAILY [facility] Sodium Chloride (Saline Flush) 10 ml FLUSH ASDIRECTED PRN PRN Reason: Keep Vein Open Assessment/Plan Comment:: 1. Will follow in regards to his chronic medical conditions. Reviewed his medicines and he may need to add some back tomorrow. Lelo status is okay right now. Good pulmonary toilet advice. - Mortality Measure Prognosis:: Good
[2019-05-11] MEDS: Acetaminophen 325 MG Tab PO SCH (20:53)
[2019-05-11] MEDS: Acetaminophen/HYDROcodone 325-10 MG Tab PO PRN (20:54)
[2019-05-11] MEDS: Albuterol 0.083% 2.5 MG/3 ML Neb Soln *PTOM NEB SCH (20:57)
[2019-05-12] MEDS: Acetaminophen/HYDROcodone 325-10 MG Tab PO PRN ×2 (00:15→05:52)
[2019-05-12] MEDS: Albuterol 0.083% 2.5 MG/3 ML Neb Soln *PTOM NEB SCH ×2 (05:52→06:49)
[2019-05-12] MEDS: Acetaminophen 325 MG Tab PO SCH (08:09)
--- NOTE | 2019-05-12 08:15 | PCM.PN ---
- General Info Date of Service: 05/12/19 Admission Dx/Problem (Free Text): Should without complaints. Says he is breathing fine without any shortness of breath. He is currently on 2 L nasal cannula and that's when he uses normally. COPD is doing well. His no chest pain, shortness of breath. He 7 pain from his surgery the using the hydrocodone. - Patient Data Vitals - Most Recent: Last Vital Signs Temp 97.6 F 05/12/19 04:30 Pulse 66 05/12/19 04:30 Resp 16 05/12/19 04:30 BP 126/68 05/12/19 08:07 Pulse Ox 94 L 05/12/19 04:30 Weight - Most Recent: 186 lb I&O - Last 24 Hours: Intake & Output 05/11/19 05/12/19 05/12/19 22:59 06:59 14:59 Intake Total 240 1400 Output Total 300 450 Balance -60 950 Med Orders - Current: Current Medications Acetaminophen (Tylenol) 650 mg PO BID [facility] Last Admin: 05/12/19 08:09 Dose: 650 mg Hydrocodone Bitart/Acetaminophen ([place] 325-10 Mg) 1 tab PO Q3H PRN PRN Reason: Pain Last Admin: 05/12/19 05:52 Dose: 1 tab Albuterol (Proventil Neb Soln) 2.5 mg NEB BIDRT [facility] Last Admin: 05/12/19 06:49 Dose: Not Given Aspirin (Halfprin) 81 mg PO DAILY [facility] Last Admin: 05/12/19 08:08 Dose: 81 mg Citalopram Hydrobromide (Celexa) 20 mg PO DAILY [facility] Last Admin: 05/12/19 08:07 Dose: 20 mg Clopidogrel Bisulfate (Plavix) 75 mg PO DAILY [facility] Diphenhydramine HCl (Benadryl) 25 mg PO Q4H PRN PRN Reason: Insomnia Docusate Sodium (Colace) 100 mg PO BID PRN PRN Reason: Constipation Loperamide HCl (Imodium) 2 mg PO DAILY PRN PRN Reason: LOOSE STOOLS Magnesium Hydroxide (Milk Of Magnesia) 30 ml PO DAILY PRN PRN Reason: Constipation Naloxone HCl (Narcan) 0.1 mg IVPUSH ONETIME PRN PRN Reason: Oversedation (Omeprazole [ Prilosec] 20 Mg) * Ptom 20 mg PO DAILY [facility] Last Admin: 05/12/19 08:08 Dose: 20 mg Incruse Ellipta * (Ptom) 1 puff INH DAILY [facility] Last Admin: 05/12/19 08:11 Dose: 1 puff Oseltamivir Phosphate (Tamiflu) 75 mg PO DAILY [facility] Last Admin: 05/12/19 08:10 Dose: 75 mg Sodium Chloride (Saline Flush) 10 ml FLUSH ASDIRECTED PRN PRN Reason: Keep Vein Open Discontinued Medications Bupivacaine HCl (Marcaine 0.5%) 10 ml INJECT .STK-MED ONE Stop: 05/11/19 15:29 Last Admin: 05/11/19 15:28 Dose: 10 ml Cefazolin Sodium/Dextrose 2 gm (/ Premix) 50 mls @ 100 mls/hr IV ONETIME ONE Stop: 05/11/19 12:29 Last Admin: 05/11/19 14:39 Dose: Not Given Lactated Ringer's (Ringers, Lactated) 1,000 mls @ 125 mls/hr IV ASDIRECTED [facility] Last Admin: 05/11/19 17:38 Dose: 125 mls/hr Losartan Potassium (Cozaar) 50 mg PO DAILY [facility] Last Admin: 05/12/19 08:07 Dose: 50 mg - Exam General: Alert, Oriented Lungs: Normal Respiratory Effort, Crackles (Bases bilateral) Cardiovascular: Regular Rate, Regular Rhythm, No Murmurs Sepsis Event Note - Evaluation Sepsis Screening Result: No Definite Risk - Focused Exam Vital Signs: Vital Signs Temp Pulse Resp BP BP Pulse Ox Pulse Ox 05/12/19 08:07 126/68 05/12/19 04:30 97.6 F 66 16 150/88 H 94 L 05/12/19 00:01 97.5 F 78 18 163/89 H 94 L 05/11/19 20:55 97.9 F 82 168/97 H 94 L Date Exam was Performed: 05/12/19 Time Exam was Performed: 08:13 - Problem List & Annotations (1) COPD (chronic obstructive pulmonary disease) SNOMED Code(s): 06737302 Code(s): J44.9 - CHRONIC OBSTRUCTIVE PULMONARY DISEASE, UNSPECIFIED Status : Acute Current Visit: No (2) Carotid stenosis Status: Acute Current Visit: No Qualifiers: (3) Hypertension SNOMED Code(s): 59062604 Code(s): I10 - ESSENTIAL (PRIMARY) HYPERTENSION Status: Acute Current Visit: No - Problem List Review Problem List Initiated/Reviewed/Updated: Yes - My Orders Last 24 Hours: My Active Orders 05/12/19 09:00 Losartan [Cozaar] 100 mg PO DAILY - Plan Plan:: 1. Increase Cozaar to 100 mg a day for maybe a week until his pain is under better control and then go back to his regular medications for hypertension. Pulmonary diaz, I think the crackles are most likely from atelectasis. Patient stable from a pulmonary perspective.
--- NOTE | 2019-05-12 08:39 | PCM.DCSUM1 ---
Discharge Summary - Hospital Course HPI Initial Comments: 79 yo male left knee hardware removal Diagnosis: Stroke: No - Discharge Data Discharge Date: 05/12/19 Discharge Disposition: DC/Tfer to SNF 03 Condition: Good - Referral to Home Health Primary Care Physician: Jg Nash MD - Discharge Diagnosis/Problem(s) (1) Fixation hardware in lower extremity SNOMED Code(s): 292793951 ICD Code: Z96.7 - PRESENCE OF OTHER BONE AND TENDON IMPLANTS Status: Acute Current Visit: Yes - Patient Summary/Data Operative Procedure(s) Performed: removal of hardware left knee Complications: none Consults: Consultations 05/11/19 15:00 OT Evaluation and Treatment [CONS] Routine Please Evaluate and Treat. OT Reason for Consult: Strengthening This query below is only for informational purposes and is not editable. Admission Diagnosis/Problem: Knee joint operation PT Evaluation and Treatment [CONS] Routine Please Evaluate and Treat. PT Reason for Consult: Strengthening This query below is only for informational purposes and is not editable. Admission Diagnosis/Problem: Knee joint operation 05/11/19 15:54 Consult to Physician [CONS] Routine Consulting Provider: Donavan Hernandez Call Completed to Consulting Physician: Yes Reason for Consult: hospitalist-medical complexity of patient 05/11/19 15:55 Respiratory Care Assess and Treatment [CONS] Routine Comment: Physician Instructions: Post-Op Pneumonia Prevention - Patient Instructions Diet: Regular Diet as Tolerated Activity: Apply Ice, As Tolerated, Full Weight Bearing, No Strenuous Activities Driving: Do Not Drive Showering/Bathing: May Shower in 3 Days Wound/Incision Care: Keep Operative Site/Wound Site Clean and Dry, Change Dressing Daily Wound/Incision, Other: remove isidro 05/14, change dressing daily or after shower Notify Provider of: Fever, Increased Pain, Swelling and Redness, Drainage, Nausea and/or Vomiting - Discharge Plan *PRESCRIPTION DRUG MONITORING PROGRAM REVIEWED*: Not Applicable *COPY OF PRESCRIPTION DRUG MONITORING REPORT IN PATIENT ELLA: Not Applicable Prescriptions/Med Rec: Losartan [Cozaar] 100 mg PO DAILY #7 tablet Home Medications: Home Meds Albuterol Sulfate [Proair Hfa] 2 puff IH Q4H PRN 05/12/13 [History] Omeprazole [Prilosec] 20 mg PO DAILY 05/12/13 [History] Bisacodyl [Dulcolax] 10 mg RC Q3D PRN 08/21/18 [History] Loperamide [Imodium AD] 2 mg PO ASDIRECTED PRN 08/21/18 [History] Albuterol [Proventil Neb Soln] 2.5 mg NEB BID 05/07/19 [History] Benzonatate [Tessalon Perle] 200 mg PO TID PRN 05/07/19 [History] Umeclidinium Brm/Vilanterol Tr [Anoro Ellipta 62.5-25 MCG] 1 puff INH DAILY [History] guaiFENesin 10 ml PO Q4H PRN 05/07/19 [History] Acetaminophen [Tylenol] 650 mg PO BID 05/11/19 [History] Acetaminophen [Tylenol] 650 mg PO Q4H PRN 05/11/19 [History] Aspirin [Halfprin] 81 mg PO DAILY 05/11/19 [History] Cholestyramine (With Sugar) [Questran Powder] 4 gm PO DAILY@1000 05/11/19 [ History] Citalopram Hydrobromide [Celexa] 20 mg PO DAILY 05/11/19 [History] Eucalyptus/Menthol [Cough Drops] 1 lozenge PO ASDIRECTED PRN 05/11/19 [History] Magnesium Hydroxide [Milk of Magnesia] 30 ml PO DAILY PRN 05/11/19 [History] Oseltamivir [Tamiflu] 75 mg PO DAILY 05/11/19 [History] Sodium Chloride [Saline Nasal [place]] 1 spray INH BID 05/11/19 [History] Losartan [Cozaar] 100 mg PO DAILY #7 tablet 05/12/19 [Rx] Oxygen Therapy Mode: Room Air Referrals: Chapincito Bartlett DO [Physician] - - Discharge Summary/Plan Comment DC Time >30 min.: No - General Info Date of Service: 05/12/19 Functional Status: Reports: Pain Controlled, Tolerating Diet - Review of Systems General: Reports: No Symptoms HEENT: Reports: No Symptoms Pulmonary: Reports: No Symptoms Cardiovascular: Reports: No Symptoms Gastrointestinal: Reports: No Symptoms Genitourinary: Reports: No Symptoms Musculoskeletal: Reports: Leg Pain, Joint Pain Skin: Reports: No Symptoms Neurological: Reports: No Symptoms Psychiatric: Reports: No Symptoms - Patient Data Vitals - Most Recent: Last Vital Signs Temp 97.6 F 05/12/19 04:30 Pulse 66 05/12/19 04:30 Resp 16 05/12/19 04:30 BP 126/68 05/12/19 08:07 Pulse Ox 94 L 05/12/19 04:30 Weight - Most Recent: 186 lb I&O - Last 24 hours: Intake & Output 05/11/19 05/12/19 05/12/19 22:59 06:59 14:59 Intake Total 240 1400 Output Total 300 450 Balance -60 950 Med Orders - Current: Current Medications Acetaminophen (Tylenol) 650 mg PO BID [facility] Last Admin: 05/12/19 08:09 Dose: 650 mg Hydrocodone Bitart/Acetaminophen ([place] 325-10 Mg) 1 tab PO Q3H PRN PRN Reason: Pain Last Admin: 05/12/19 05:52 Dose: 1 tab Albuterol (Proventil Neb Soln) 2.5 mg NEB BIDRT [facility] Last Admin: 05/12/19 06:49 Dose: Not Given Aspirin (Halfprin) 81 mg PO DAILY [facility] Last Admin: 05/12/19 08:08 Dose: 81 mg Citalopram Hydrobromide (Celexa) 20 mg PO DAILY [facility] Last Admin: 05/12/19 08:07 Dose: 20 mg Clopidogrel Bisulfate (Plavix) 75 mg PO DAILY [facility] Diphenhydramine HCl (Benadryl) 25 mg PO Q4H PRN PRN Reason: Insomnia Docusate Sodium (Colace) 100 mg PO BID PRN PRN Reason: Constipation Loperamide HCl (Imodium) 2 mg PO DAILY PRN PRN Reason: LOOSE STOOLS Losartan Potassium (Cozaar) 50 mg PO ONETIME ONE Stop: 05/12/19 09:01 Losartan Potassium (Cozaar) 100 mg PO DAILY [facility] Magnesium Hydroxide (Milk Of Magnesia) 30 ml PO DAILY PRN PRN Reason: Constipation Naloxone HCl (Narcan) 0.1 mg IVPUSH ONETIME PRN PRN Reason: Oversedation (Omeprazole [ Prilosec] 20 Mg) * Ptom 20 mg PO DAILY [facility] Last Admin: 05/12/19 08:08 Dose: 20 mg Incruse Ellipta * (Ptom) 1 puff INH DAILY [facility] Last Admin: 05/12/19 08:11 Dose: 1 puff Oseltamivir Phosphate (Tamiflu) 75 mg PO DAILY [facility] Last Admin: 05/12/19 08:10 Dose: 75 mg Sodium Chloride (Saline Flush) 10 ml FLUSH ASDIRECTED PRN PRN Reason: Keep Vein Open Discontinued Medications Bupivacaine HCl (Marcaine 0.5%) 10 ml INJECT .STK-MED ONE Stop: 05/11/19 15:29 Last Admin: 05/11/19 15:28 Dose: 10 ml Cefazolin Sodium/Dextrose 2 gm (/ Premix) 50 mls @ 100 mls/hr IV ONETIME ONE Stop: 05/11/19 12:29 Last Admin: 05/11/19 14:39 Dose: Not Given Lactated Ringer's (Ringers, Lactated) 1,000 mls @ 125 mls/hr IV ASDIRECTED [facility] Last Admin: 05/11/19 17:38 Dose: 125 mls/hr Losartan Potassium (Cozaar) 50 mg PO DAILY [facility] Last Admin: 05/12/19 08:07 Dose: 50 mg - Exam General: Reports: Alert, Oriented, Cooperative, No Acute Distress HEENT: Reports: Pupils Equal, Pupils Reactive, EOMI, Mucous Membr. Moist/[employer] Neck: Reports: Supple, Trachea Midline Lungs: Reports: Normal Respiratory Effort Extremities: Leg Pain, Limited Range of Motion Skin: Reports: Warm, Dry, Intact Wound/Incisions: Reports: Healing Well, Dressing Dry and Intact, No Drainage Neurological: Reports: No New Focal Deficit Psy/Mental Status: Reports: Alert, Normal Affect, Normal Mood Discharge Operative/Procedures - Procedures Performed Operations: removal of hardware left knee
[2019-05-12] MEDS ORDERED: Losartan 50 MG Tab *PTOM PO SCH (09:00)
[2019-05-12] MEDS ORDERED: INCRUSE ELLIPTA *PTOM INH SCH (09:00)
[2019-05-12] MEDS ORDERED: Aspirin 81 MG Tab.EC *PTOM PO SCH (09:00)
[2019-05-12] MEDS ORDERED: Losartan 50 MG Tab *PTOM PO ONE (09:00)
[2019-05-12] MEDS ORDERED: OSELTAMIVIR 75 MG PO SCH (09:00)
--- NOTE | 2019-05-12 10:22 | CR ---
INDICATION: Hardware removal. C-ARM LESS THAN 1 HOUR IN OR: Dose area product 5.03 mGy M2 was utilized in removal of a pin at the left knee. Fractured wire fragments remain present. One smaller fragment is inferiorly overlying the proximal tibial metaphysis. This fragment apparently has migrated from a point along the anterior cranial aspect of the patella inferiorly. The remainder of the fracture fragments of the wire at the patella appear to be fairly stable in position. MTDD
[2019-05-12 17:03] VITALS: BP 138/74; PULSE 89
[2019-05-12] MEDS ORDERED: Clopidogrel 75 MG Tab *PTOM PO SCH (21:00)
[2019-05-13] MEDS ORDERED: Losartan 50 MG Tab *PTOM PO SCH (09:00)
== END 2019-05-12 12:55 ==
LOC: FB.SDS 10:22 → FB.MS 16:00 → FB.SDS 05-12 12:55
PROVIDERS: ATTEND Orthopaedic Surgery
DX: T84.84XA Pain due to internal orthopedic prosthetic devices, implants and grafts, initial encounter (principal); I10 Essential (primary) hypertension; J44.9 Chronic obstructive pulmonary disease, unspecified; I65.29 Occlusion and stenosis of unspecified carotid artery; M19.012 Primary osteoarthritis, left shoulder; Y83.1 Surgical operation with implant of artificial internal device as the cause of abnormal reaction of the patient, or of later complication, without mention of misadventure at the time of the procedure; Z87.891 Personal history of nicotine dependence; Z79.82 Long term (current) use of aspirin; Z79.51 Long term (current) use of inhaled steroids; Z79.899 Other long term (current) drug therapy; Z86.73 Personal history of transient ischemic attack (TIA), and cerebral infarction without residual deficits
CPT/HCPCS: 01400-QZ; 76000; 94150; A9270-GY; J0690; J2001; J2370; J2704; J3010; J3490; J7120

== ENCOUNTER 2019-08-28 11:12 | Emergency (ER) | payer MEDICARE, MEDICAID ==
[2019-08-28 11:37] VITALS: PULSE 80
--- NOTE | 2019-08-28 12:46 | CR ---
INDICATION: Right flank pain x1 week. ABDOMEN SERIES WITH CHEST: PA view of the chest with 6 views of the abdomen in supine and upright projections were obtained 08/28/19 and compared with chest x- ray from 06/08/[address] of the abdomen and pelvis from 12/03/17. Comparison for the chest was also chest x-ray from 02/05/19. The heart is enlarged. Fibrotic appearing changes are noted peripherally, extending into the apical areas and in the lung bases without a definite new acute process - consolidating pneumonia or effusion. No definite free air is noted into the hemidiaphragm leaves. The large bowel is somewhat distended with air. Gas is noted in the rectum. The possibility of a sigmoid level partially obstructive process or early mechanical obstructive process is difficult to exclude with this appearance. Otherwise, no organomegaly, mass lesions or nonvascular pathologic calcifications are noted. Phleboliths are noted in the pelvis as previously. Degenerative changes and disk disease are noted at L4-5. Hypertrophic changes are noted throughout the thoracolumbar spine. IMPRESSION: Somewhat distended colon is noted up to the level of the distal descending colon. The possibility of partially obstructive or early mechanical obstructive process in the sigmoid or at the distal most descending colon, would be a consideration. There is gas noted in the rectum to a small extent, however, and findings should be correlated clinically. MTDD
[2019-08-28] MEDS ORDERED: Bisacodyl 10 MG Supp RECTAL ONE (12:54)
[2019-08-28] MEDS ORDERED: Magnesium Hydroxide 400 MG/5 ML Susp 30 ML Cup PO ONE (12:55)
[2019-08-28] MEDS ORDERED: Simethicone 80 MG Tab.Chew PO STA (12:55)
--- NOTE | 2019-08-28 13:39 | EDM.PDOC ---
ED HPI GENERAL MEDICAL PROBLEM - General Chief Complaint: Abdominal Pain Stated Complaint: abd pain Time Seen by Provider: 08/28/19 11:25 Source of Information: Reports: Patient History Limitations: Reports: No Limitations - History of Present Illness INITIAL COMMENTS - FREE TEXT/NARRATIVE: states he has had abd pain for about 3 weeks , since yesterday got worse , mainly in the right flank extending to the right CVA area still has diarrhea , BM often , pt take imodium no fever or chills , no blood or mucous in the stools noted Onset: Gradual Onset Date: 08/25/19 Duration: Day(s):, Getting Worse Location: Reports: Abdomen Quality: Reports: Ache, Dull Severity: Moderate Improves with: Reports: None Worsens with: Reports: Movement Context: Reports: Activity Associated Symptoms: Reports: No Other Symptoms abdomen Pain Score (Numeric/FACES): 6 - Related Data Allergies Allergy/AdvReac Type Severity Reaction Status Date / Time No Known Allergies Allergy Verified 08/28/19 11:55 Home Meds: Home Meds Albuterol Sulfate [Proair Hfa] 2 puff IH Q4H PRN 05/12/13 [History] Omeprazole [Prilosec] 20 mg PO DAILY 05/12/13 [History] Loperamide [Imodium AD] 2 mg PO ASDIRECTED PRN 08/21/18 [History] bisacodyL [Dulcolax] 10 mg RC Q3D PRN 08/21/18 [History] Albuterol [Proventil Neb Soln] 2.5 mg NEB BID 05/07/19 [History] Benzonatate [Tessalon Perle] 200 mg PO TID PRN 05/07/19 [History] Umeclidinium Brm/Vilanterol Tr [Anoro Ellipta 62.5-25 MCG] 1 puff INH DAILY [History] guaiFENesin 10 ml PO Q4H PRN 05/07/19 [History] Acetaminophen [Tylenol] 650 mg PO Q4H PRN 05/11/19 [History] Acetaminophen [Tylenol] 650 mg PO TID 05/11/19 [History] Aspirin [Halfprin] 81 mg PO DAILY 05/11/19 [History] Cholestyramine (With Sugar) [Questran Powder] 4 gm PO DAILY@1000 05/11/19 [ History] Citalopram Hydrobromide [Celexa] 20 mg PO DAILY 05/11/19 [History] Magnesium Hydroxide [Milk of Magnesia] 30 ml PO DAILY PRN 05/11/19 [History] Sodium Chloride [Saline Nasal [place]] 1 spray INH BID 05/11/19 [History] Losartan [Cozaar] 100 mg PO DAILY #7 tablet 05/12/19 [Rx] Benzonatate 200 mg PO DAILY 08/28/19 [History] Clopidogrel [Plavix] 75 mg PO DAILY 08/28/19 [History] Lactobacillus Acidophilus [Acidophilus Lactobacilli] 1 each PO BID #120 capsule 08/28/19 [Rx] Nystatin 500,000 unit PO DAILY #10 tablet 08/28/19 [Rx] Saccharomyces Boulardii [Florastor] 250 mg PO DAILY #90 capsule 08/28/19 [Rx] Past Medical History HEENT History: Reports: Cataract Other HEENT History: wears glasses Cardiovascular History: Reports: Arrhythmia, Hypertension, Other (See Below) Other Cardiovascular History: SYMPTOMATIC STENOSIS OF RIGHT CAROTID ARTERY Respiratory History: Reports: Asthma, COPD, TB Other Respiratory History: FORMER SMOKER Gastrointestinal History: Reports: Hiatal Hernia Other Gastrointestinal History: hx Hepatitis C Genitourinary History: Reports: Renal Calculus, Other (See Below) Other Genitourinary History: bloody urine, enlarged left testicle Musculoskeletal History: Reports: Osteoarthritis Other Musculoskeletal History: HX OF PATELLA FX Neurological History: Reports: TIA, Other (See Below) Other Neuro History: DIZZINESS AND GIDDINESS Psychiatric History: Reports: None Endocrine/Metabolic History: Reports: None Hematologic History: Reports: Other (See Below) Other Hematologic History: HX OF HEPATITIS C Immunologic History: Reports: None Oncologic (Cancer) History: Reports: Colon Dermatologic History: Reports: None - Infectious Disease History Infectious Disease History: Reports: Hepatitis C - Past Surgical History Head Surgeries/Procedures: Reports: None HEENT Surgical History: Reports: None Cardiovascular Surgical History: Reports: Carotid Endarterectomy Respiratory Surgical History: Reports: None GI Surgical History: Reports: Colon Male Surgical History: Reports: None Endocrine Surgical History: Reports: None Neurological Surgical History: Reports: None Musculoskeletal Surgical History: Reports: Arthroscopic Procedure, Shoulder Surgery, Other (See Below) Other Musculoskeletal Surgeries/Procedures:: KNEE SURGERY- LEFT Oncologic Surgical History: Reports: None Dermatological Surgical History: Reports: None Social & Family History - Family History Family Medical History: Noncontributory - Tobacco Use Smoking Status *Q: Former Smoker Used Tobacco, but Quit: Yes Month/Year Tobacco Last Used: 1969 - Caffeine Use Caffeine Use: Reports: Coffee Other Caffeine Use: 1 cup a day - Recreational Drug Use Recreational Drug Use: No Drug Use in Last 12 Months: No - Living Situation & Occupation Living situation: Reports: Occupation: Retired ED ROS GENERAL - Review of Systems Review Of Systems: See Below Constitutional: Reports: Weakness, Fatigue. Denies: Fever, Chills, Malaise HEENT: Reports: No Symptoms Respiratory: Reports: No Symptoms Cardiovascular: Reports: No Symptoms Endocrine: Reports: No Symptoms GI/Abdominal: Reports: Abdominal Pain, Anorexia, Diarrhea, Decreased Appetite, Distension, Flatus. Denies: Bloody Stool, Constipation, Mucous in Stool, Nausea , Stool Incontinence, Vomiting : Reports: No Symptoms Musculoskeletal: Reports: No Symptoms Skin: Reports: No Symptoms Neurological: Reports: No Symptoms Psychiatric: Reports: No Symptoms Hematologic/Lymphatic: Reports: No Symptoms ED EXAM, GI/ABD - Physical Exam Exam: See Below Exam Limited By: No Limitations General Appearance: Alert, WD/WN, Moderate Distress Eyes: Bilateral: EOMI Ears: Normal External Exam Nose: Normal Inspection Throat/Mouth: Normal Oropharynx Head: Atraumatic, Normocephalic Neck: Supple, Non-Tender Respiratory/Chest: Lungs Clear, Normal Breath Sounds Cardiovascular: Normal Peripheral Pulses, Regular Rate, Rhythm GI/Abdominal Exam: Soft, Non-Tender, Distended, Tender, Abnormal Bowel Sounds ( hypoactive BS). No: Guarding, Rigid Back Exam: Full Range of Motion Extremities: Normal Range of Motion, Non-Tender Neurological: Alert, Oriented, Normal Cognition, Normal Gait Psychiatric: Normal Affect, Normal Mood. No: Anxious Skin Exam: Warm Course - Vital Signs Last Recorded V/S: Last Vital Signs Temp 35.9 C L 08/28/19 11:15 Pulse 80 08/28/19 11:15 Resp 22 H 08/28/19 11:15 BP 124/64 08/28/19 11:15 Pulse Ox 99 08/28/19 11:15 - Orders/Labs/Meds Labs: Laboratory Tests 05/08/20 05/08/20 05/08/20 Range/Units 11:48 12:15 12:15 WBC 6.2 (4.5-12.0) X10-3/uL RBC 4.07 L (4.30-5.75) x10(6)uL Hgb 13.4 L (13.5-17.8) g/dL Hct 38.7 (30.0-51.3) % MCV 95.1 (80-96) fL MCH 33.1 (27.7-33.6) pg MCHC 34.8 (32.2-35.4) g/dL RDW 13.4 (11.5-15.5) % Plt Count 196 (125-369) X10(3)uL MPV 7.2 L (7.4-10.4) fL Neut % (Auto) 57.1 (46-82) % Lymph % (Auto) 31.1 (13-37) % [place] % (Auto) 9.1 (4-12) % Eos % (Auto) 2 (1.0-5.0) % Baso % (Auto) 1 (0-2) % Neut # (Auto) 3.6 (1.6-8.3) # Lymph # (Auto) 1.9 (0.6-5.0) # [place] # (Auto) 0.6 (0.0-1.3) # Eos # (Auto) 0.1 (0.0-0.8) # Baso # (Auto) 0.0 (0.0-0.2) # Sodium 141 (135-145) mmol/L Potassium 4.0 (3.5-5.3) mmol/L Chloride 104 (100-110) mmol/L Carbon Dioxide 31 (21-32) mmol/L BUN 12 (7-18) mg/dL Creatinine 1.1 (0.70-1.30) mg/dL Est Cr Clr Drug Dosing 52.67 mL/min Estimated GFR (MDRD) > 60 (>60) BUN/Creatinine Ratio 10.9 (9-20) Glucose 104 (80-116) mg/dL Calcium 8.7 (8.6-10.2) mg/dL Total Bilirubin 0.5 (0.1-1.3) mg/dL AST 17 (5-25) IU/L ALT 30 D (12-36) U/L Alkaline Phosphatase 87 (56-112) IU/L C-Reactive Protein (0.5-0.9) mg/dL NT-Pro-B Natriuret Pep (<=450) pg/mL Total Protein 7.0 (6.0-8.0) g/dL Albumin 3.5 (3.2-4.6) g/dL Globulin 3.5 g/dL Albumin/Globulin Ratio 1.0 Urine Color Yellow (YELLOW) Urine Appearance Clear (CLEAR) Urine pH 6.0 (5.0-6.5) Ur Specific [place] 1.015 (1.010-1.025) Urine Protein Negative (NEGATIVE) mg/dL Urine Glucose (UA) Normal (NORMAL) mg/dL Urine Ketones Negative (NEGATIVE) mg/dL Urine Occult Blood Moderate H (NEGATIVE) Urine Nitrite Negative (NEGATIVE) Urine Bilirubin Negative (NEGATIVE) Urine Urobilinogen Normal (NEGATIVE) mg/dL Ur Leukocyte Esterase Negative (NEGATIVE) Urine RBC 0-5 (0-5) Urine WBC 0-5 (0-5) Ur Squamous Epith Cells Rare (NS,R,O) Urine Bacteria Rare H (NS) 08/28/19 08/28/19 Range/Units 12:15 12:15 WBC (4.5-12.0) X10-3/uL RBC (4.30-5.75) x10(6)uL Hgb (13.5-17.8) g/dL Hct (30.0-51.3) % MCV (80-96) fL MCH (27.7-33.6) pg MCHC (32.2-35.4) g/dL RDW (11.5-15.5) % Plt Count (125-369) X10(3)uL MPV (7.4-10.4) fL Neut % (Auto) (46-82) % Lymph % (Auto) (13-37) % [place] % (Auto) (4-12) % Eos % (Auto) (1.0-5.0) % Baso % (Auto) (0-2) % Neut # (Auto) (1.6-8.3) # Lymph # (Auto) (0.6-5.0) # [place] # (Auto) (0.0-1.3) # Eos # (Auto) (0.0-0.8) # Baso # (Auto) (0.0-0.2) # Sodium (135-145) mmol/L Potassium (3.5-5.3) mmol/L Chloride (100-110) mmol/L Carbon Dioxide (21-32) mmol/L BUN (7-18) mg/dL Creatinine (0.70-1.30) mg/dL Est Cr Clr Drug Dosing mL/min Estimated GFR (MDRD) (>60) BUN/Creatinine Ratio (9-20) Glucose (80-116) mg/dL Calcium (8.6-10.2) mg/dL Total Bilirubin (0.1-1.3) mg/dL AST (5-25) IU/L ALT (12-36) U/L Alkaline Phosphatase (56-112) IU/L C-Reactive Protein 0.3 L (0.5-0.9) mg/dL NT-Pro-B Natriuret Pep 606 H (<=450) pg/mL Total Protein (6.0-8.0) g/dL Albumin (3.2-4.6) g/dL Globulin g/dL Albumin/Globulin Ratio Urine Color (YELLOW) Urine Appearance (CLEAR) Urine pH (5.0-6.5) Ur Specific [place] (1.010-1.025) Urine Protein (NEGATIVE) mg/dL Urine Glucose (UA) (NORMAL) mg/dL Urine Ketones (NEGATIVE) mg/dL Urine Occult Blood (NEGATIVE) Urine Nitrite (NEGATIVE) Urine Bilirubin (NEGATIVE) Urine Urobilinogen (NEGATIVE) mg/dL Ur Leukocyte Esterase (NEGATIVE) Urine RBC (0-5) Urine WBC (0-5) Ur Squamous Epith Cells (NS,R,O) Urine Bacteria (NS) Meds: Medications Discontinued Medications Generic Name Dose Route Start Last Admin Trade Name Freq PRN Reason Stop Dose Admin Bisacodyl 10 mg 08/28/19 12:54 08/28/19 13:06 Dulcolax RECTAL 08/28/19 12:55 10 mg ONETIME ONE Administration Magnesium Hydroxide 30 ml 08/28/19 12:55 08/28/19 13:05 Milk Of Magnesia PO 08/28/19 12:56 30 ml ONETIME ONE Administration Simethicone 160 mg 08/28/19 12:55 05/08/20 13:05 Simethicone PO 08/28/19 12:56 160 mg NOW STA Administration - Re-Assessments/Exams Free Text/Narrative Re-Assessment/Exam: 08/28/19 13:36 Abd Xray noted to show gaseous distension in the abdomen labs are normal pt started on probiotics Departure - Departure Time of Disposition: 13:45 Disposition: DC/Tfer to [facility] 03 Condition: Fair Clinical Impression: Abdominal pain, Gaseous abdominal distention, Diarrhea - Discharge Information *PRESCRIPTION DRUG MONITORING PROGRAM REVIEWED*: Not Applicable *COPY OF PRESCRIPTION DRUG MONITORING REPORT IN PATIENT ELLA: Not Applicable Prescriptions: Lactobacillus Acidophilus [Acidophilus Lactobacilli] 1 each PO BID #120 capsule Nystatin 500,000 unit PO DAILY #10 tablet Saccharomyces Boulardii [Florastor] 250 mg PO DAILY #90 capsule Referrals: Jg Nash MD [Primary Care Provider] - Additional Instructions: 1) Increase fluid intake 2) Increase use of laxative to improve gaseous discharge 3) Continue with all other medications Sepsis Event Note - Evaluation Sepsis Screening Result: No Definite Risk - Focused Exam Vital Signs: Vital Signs Temp Pulse Resp BP Pulse Ox 08/28/19 11:15 35.9 C L 80 22 H 124/64 99 Date Exam was Performed: 08/28/19 Time Exam was Performed: 13:33
[2019-08-28 13:47] VITALS: BP 133/80
== END 2019-08-28 13:40 | disposition home or self-care (01) ==
LOC: FB.ED 11:12
DX: R14.0 Abdominal distension (gaseous) (principal); R19.7 Diarrhea, unspecified; I10 Essential (primary) hypertension; J44.9 Chronic obstructive pulmonary disease, unspecified; M19.90 Unspecified osteoarthritis, unspecified site; Z87.891 Personal history of nicotine dependence; Z79.82 Long term (current) use of aspirin; Z79.02 Long term (current) use of antithrombotics/antiplatelets; Z79.899 Other long term (current) drug therapy; Z86.73 Personal history of transient ischemic attack (TIA), and cerebral infarction without residual deficits
CPT/HCPCS: 36415; 74022; 80053; 81001; 83880; 85025; 86140; 99285; A9270; 99283

== ENCOUNTER 2020-09-14 10:29 | Day surgery (SDC) | payer MEDICARE ==
[2020-09-14] MEDS ORDERED: Ondansetron 4 MG/2 ML SDV IVPUSH ONE (10:30)
[2020-09-14] MEDS ORDERED: fentaNYL 100 MCG/2 ML SDV IV ONE (10:30)
[2020-09-14] MEDS ORDERED: Sodium Chloride 0.9% 10 ML Syringe FLUSH PRN (10:30)
[2020-09-14] MEDS ORDERED: Midazolam 1 MG/ML 2 ML SDV IV ONE (10:30)
[2020-09-14] MEDS ORDERED: Propofol 200 MG/20 ML SDV IV ONE (10:30)
[2020-09-14] MEDS ORDERED: Lactated Ringers 1,000 ML IV SCH (10:30)
[2020-09-14] MEDS ORDERED: ceFAZolin 2 GM in Premix Bag 1 BAG IV ONE (11:30)
[2020-09-14] MEDS ORDERED: Bupivacaine 0.5% 30 ML SDV INJECT ONE ×2 (12:01)
[2020-09-14] MEDS ORDERED: Lidocaine 1% with EPINEPHrine 1:100,000 20 ML MDV INJECT ONE (12:25)
--- NOTE | 2020-09-14 13:12 | PCM.OPNOTE ---
- General Post-Op/Procedure Note Date of Surgery/Procedure: 09/14/20 Operative Procedure(s): Repair Umbilical Hernia Findings: Moderate sized umbilical hernia containing preperitoneal fat Pre Op Diagnosis: Umbilical Hernia Post-Op Diagnosis: Same Anesthesia Technique: Local, MAC Primary Surgeon: Kale Lester Pathology: none EBL in mLs: 5 Complications: None Condition: Good
[2020-09-14 14:11] VITALS: BP 142/78; PULSE 75
--- NOTE | 2020-09-14 15:43 | PREOP ---
ADMISSION DATE: 09/14/2020 This 80-year-old male presents today for repair of umbilical hernia. He is medically stable to proceed today with no significant changes since his recent preoperative evaluation in the outpatient clinic. The patient states that he is not having any additional pain or any new symptoms from this hernia. The site of the hernia is confirmed with the patient and marked. The proposed procedure was again reviewed with him and he agreed to have this performed. /[id number] MAURICE/CHANEL
--- NOTE | 2020-09-14 15:58 | OR ---
DATE OF OPERATION: 09/14/2020 SURGEON: Kale Lester MD PREOPERATIVE DIAGNOSIS: Umbilical hernia. POSTOPERATIVE DIAGNOSIS: Umbilical hernia. OPERATION PERFORMED: Umbilical hernia repair. INDICATIONS FOR SURGERY: This 80-year-old male has developed a bulge at the level of his umbilicus. Findings were felt to be consistent with an umbilical hernia and he comes for elective repair. FINDINGS: At the level of the umbilicus, the patient has an approximately 3 cm fascial defect. Preperitoneal fat was protruding through this defect, but there was no indication of bowel involvement. The surrounding fascia does show some scarring from previous surgery, but otherwise appear solid. PROCEDURE IN DETAIL: The patient was taken to the operating room. He was given intravenous sedation, and his abdomen was sterilely prepped and draped. The periumbilical region was infiltrated with xylocaine and Marcaine mix. A curvilinear incision was made along the inferior border of the umbilicus and dissection proceeded down into the subcutaneous space where the hernia sac was identified. This was carefully from the surrounding subcutaneous tissue and sharply dissected off the skin of the umbilicus which was preserved uninjured. Once the sac had been completely isolated, the surrounding fascia was cleared and assured to be of good quality. The hernia sac was then divided at the level of the fascia circumferentially, which then allowed the hernia sac and contents to be reduced back intra-abdominally. The fascial edges were clearly defined and then this fascial defect was closed with interrupted #1 Prolene sutures in a Smead-Schmitz suturing technique. The fascia is securely incompletely closed in this manner by creating a solid hernia repair. Additional local anesthesia is administered and used for irrigation, and then the wound was closed. The skin of the umbilicus was tacked down to the underlying fascia with 4-0 Vicryl and the skin incision is reapproximated with running 4-0 Vicryl subcuticular stitch. Benzoin and Steri-Strips were applied followed by antibiotic ointment and sterile dressing. The patient was then taken from the operating room in satisfactory condition. ESTIMATED BLOOD LOSS: 5 mL. COMPLICATIONS: None. PROGNOSIS: Good. /[id number] MAURICE/MARIIAL
== END 2020-09-14 13:46 | disposition home or self-care (01) ==
LOC: FB.SDS 10:29
PROVIDERS: ATTEND Surgery
DX: K42.9 Umbilical hernia without obstruction or gangrene (principal); J44.9 Chronic obstructive pulmonary disease, unspecified; I10 Essential (primary) hypertension; E11.9 Type 2 diabetes mellitus without complications; I48.91 Unspecified atrial fibrillation; Z99.81 Dependence on supplemental oxygen; Z87.891 Personal history of nicotine dependence; Z98.890 Other specified postprocedural states
CPT/HCPCS: 94150; J0690; J2250; J2405; J2704; J3010; J3490; J7120

== ENCOUNTER 2021-07-02 03:06 | Emergency (ER) | payer MEDICARE ==
[2021-07-02 02:51] VITALS: BP 159/86; PULSE 79
== END 2021-07-02 03:30 | disposition expired ==
LOC: FB.ED 03:06
DX: S09.90XA Unspecified injury of head, initial encounter (principal); J96.00 Acute respiratory failure, unspecified whether with hypoxia or hypercapnia; I10 Essential (primary) hypertension; I48.91 Unspecified atrial fibrillation; J44.9 Chronic obstructive pulmonary disease, unspecified; Z86.73 Personal history of transient ischemic attack (TIA), and cerebral infarction without residual deficits; Z87.891 Personal history of nicotine dependence; Z79.82 Long term (current) use of aspirin; W19.XXXA Unspecified fall, initial encounter; Y92.002 Bathroom of unspecified non-institutional (private) residence as the place of occurrence of the external cause
CPT/HCPCS: 99285; 99285-25